=== PATIENT | female | born 1970 | race Caucasian/White ===

== ENCOUNTER → 2016-09-17 | Outpatient (CLI) | payer SELFPAY ==
[2015-01-17 18:17] VITALS: BP 144/72
[~2016-09-17] MED LIST: ARIP10TA13 PO; BACL10TA PO; BUPIVACAINE MPF 0.25% 10 ML VIAL. ONE; BUPR150T8 PO; CLON1TAB23 PO; CYCL10TA2 PO; DULO60CA6 PO; ESCI10TA10 PO; ESCI20TA10 PO; ESCI5TAB8 PO; EXEN5PEN2 SQ; FENT1PAT15 TD; FENT1PAT91 TD; GABA-585 PO; GABA-586 PO; HYDR-2672 PO; INSU100V13 SQ; LIRA0.6P SQ; LIRA0.6P2 SQ; LURA40TA PO; OXCA300T3 PO; OXYM10TA28 PO; PRAZ1CAP2 PO; PREG50CA PO; SITA1TAB7 PO; SUMA100T3 PO; TOPI25CA6 PO; VENL150C PO; VENL75CA PO; ZIPR20CA2 PO; ZIPR40CA2 PO; ZOLP5TAB PO; methylPREDNISolone ACETATE 40 MG/ML VIAL. ONE
--- NOTE | 2016-09-17 12:14 | PAIN ---
DATE OF SERVICE: 09/17/2016 DIAGNOSES: 1. Cervical radiculopathy with cervical spondylosis and post-cervical laminectomy syndrome. 2. Myofascial pain. 3. Lumbar radiculopathy. 4. Left shoulder pain. 5. Migraine headaches. HISTORY OF PRESENT ILLNESS: The patient is a 45-year-old female who returns for followup status post medication management with both Duragesic patch as well as Opana immediate release and Ambien for sleep. The patient also had trigger point injections in the past which did very well with her pain. She had not been seen since March 2016. The patient was still taking Duragesic patches and her Opana. We had her returned today as she has some insurance issues where her insurance was from her 's employment. He changed jobs and that she does not have insurance currently, and she is working on Disability insurance, but it is not completed yet. The patient reports significant pain at the base of the neck and shoulders into the right upper extremity as it was previously as well as in the upper mid back rated as a 10 on a scale of 10 at its worst, 5 at its least, worse with activity, getting dressed, moving her arms up overhead, significant pain in the left shoulder as well and fears that she may need some surgical intervention with this in the future, however, has not had this evaluated by an orthopedic surgeon. Currently, the patient reports the pain is waking her from sleep at night. She is applying heat and stretching, but only minimal decrease with the pain. Medication does help by about 50%-60% without side effects and is becoming more and more difficult to manage as time goes on. The patient delayed her return because of her insurance situation but returns today because the pain is becoming unbearable. PHYSICAL EXAMINATION: VITAL SIGNS: Shows blood pressure 120/79, pulse 79, respirations are 18, and temperature 99.5 degrees Fahrenheit. Height is 5 feet 6 inches, weight is 202 pounds. GENERAL: The patient is awake, alert, oriented, appropriate, very pleasant demeanor. HEENT: Head shows normocephalic, atraumatic. Extraocular movements are intact and symmetrical. Oral cavity, mucous membranes are moist and pink. Dentition is intact. NECK: Shows anterior throat supple without palpable lymphadenopathy noted. Swallow reflex is symmetrical. CHEST: Normal on inspection. Breath sounds clear to auscultation bilaterally. HEART: Shows S1 and S2 clear. ABDOMEN: Soft, nontender, and nondistended. No palpable organomegaly. No rebound or guarding demonstrated. BACK: Shows spine grossly in the midline. Cervical paraspinous muscle shows some significant tenderness and well-healed surgical scar in the midline, once again with palpation, significant tenderness to palpation in the middle and lower cervical paraspinous musculature bilaterally with very firm rope-like musculature, very tender with some radiation into the lateral shoulders, tender also consistent with trigger point areas in the trapezius bilaterally, mostly in the superior, medial, and also in the lateral trapezius on the right, but not the left, some on the rhomboid distribution as well bilaterally, again worse on the right side than the left with some minor hypertrophy with palpation noted on the right side than the left in the upper aspect of the rhomboid and thoracic paraspinous musculature. EXTREMITIES: Upper extremities showed deep tendon reflexes 1+ in the biceps and triceps tendons. Motor exam is approximately 4 on a scale of 5, but symmetrical bilaterally with shaper and presser strength, biceps and triceps flexion. Options were discussed with the patient, and the patient's old chart was reviewed as her current medication regimen and updated. Current review of systems was updated today as well. We will proceed with trigger point injections of the cervical paraspinous and trapezius musculature. Risks were again discussed including but not limited to bleeding, infection, possibility of intravascular injection sequelae, spread of local anesthetic and numbness, pneumothorax, side effects of steroid medication, and poor results regarding pain control. The patient understands and wishes to proceed. The patient will return to clinic in approximately 4 weeks for followup, was counseled on return appointment, activity level, and side effects to be aware of. The patient was also given refill prescriptions for Duragesic patch 25 mcg, Opana IR 10 mg, and Ambien 5 mg with instruction and side effects to be aware of. We discussed about each of these. The patient understands and will follow up as scheduled. DIAGNOSIS: Myofascial pain PROCEDURE: Trigger point injections of bilateral cervical paraspinous musculature and bilateral trapezius musculature under sterile prep and drape using local anesthetic. Medications Injected: A total of 40 mg of Depo-Medrol plus total of 8 mL of 0.25% bupivacaine with negative aspiration at each level. Condition on Discharge: Stable. The patient tolerated the procedure well and had no complications. ABELINO LIMA MD DR: HERMELINDA/rick JOB#: [id number] / [id number]
== END | disposition home or self-care (01) ==
LOC: PNCL 09:24
PROVIDERS: ATTEND Anesthesiology
DX: M79.1 Myalgia (principal); M54.16 Radiculopathy, lumbar region; M47.22 Other spondylosis with radiculopathy, cervical region; M96.1 Postlaminectomy syndrome, not elsewhere classified; E11.9 Type 2 diabetes mellitus without complications; F41.9 Anxiety disorder, unspecified; F32.9 Major depressive disorder, single episode, unspecified; Z72.0 Tobacco use
CPT/HCPCS: 20553; J1030; J3490

== ENCOUNTER → 2016-10-15 | Outpatient (CLI) | payer SELFPAY ==
[2015-01-17 18:17] VITALS: BP 144/72
[~2016-10-15] MED LIST changes: -BUPIVACAINE MPF 0.25% 10 ML VIAL. ONE; -methylPREDNISolone ACETATE 40 MG/ML VIAL. ONE
--- NOTE | 2016-10-15 11:27 | PAIN ---
DATE OF SERVICE: 10/15/2016 PROGRESS NOTE FOR PAIN CLINIC DIAGNOSES: 1. Cervical radiculopathy, cervical spondylosis and post-cervical laminectomy syndrome. 2. Myofascial pain. 3. Left shoulder pain. 4. Lumbar radiculopathy. HISTORY OF PRESENT ILLNESS: The patient is a 45-year-old female, who returns for followup status post trigger point injections on 09/17/2016. The patient did well with these, reports about a 50% improvement overall, still some pain in the base of the neck and right upper extremity and bilateral shoulders and also in the left shoulder, but the patient reports the pain is doing better. It is a 10 on a scale of 10, it is worst, 5 currently worse with activities, aching, shooting and becoming constant. The patient reports that her regimen of pain and Duragesic patches to the pain is not lasting for a while about 2:00-3:00 at the most. She acknowledges for an extended period of time, we discussed changing this. We will make some ulcerations with her medication regimen as she does appear to be developing some physiologic tolerance to the medications. The patient reports no new motor or sensory deficits, no new bowel or bladder incontinence or other complaints or side effects and reports that the medication for about another 50% improvement overall, which is generally more like 75%, but the pain again not lasting as long. PHYSICAL EXAMINATION: VITAL SIGNS: Today, the patient's blood pressure 136/84, pulse 88, respirations are 20, and temperature 99.0 degrees Fahrenheit, height is 5 feet 4 inches, weight is 200 pounds. GENERAL: The patient is awake, alert, oriented, appropriate, very pleasant demeanor. HEENT: Head shows normocephalic, atraumatic. Extraocular movements are intact and symmetrical. Oral cavity shows mucous membranes moist and pink. Dentition is intact. NECK: Shows anterior throat supple without palpable lymphadenopathy noted. Swallow reflex is symmetrical. CHEST: Shows normal on inspection. Breath sounds are clear to auscultation bilaterally. HEART: Shows S1 and S2 clear. ABDOMEN: Soft, nontender, nondistended. No palpable organomegaly. There is no rebound or guarding demonstrated. BACK: Shows spine grossly midline. Normal appearing thoracic kyphosis and lumbar lordotic curvature. Cervical paraspinous muscle shows some moderate tenderness with palpation bilaterally in the inferior aspect of cervical paraspinous muscles in the superior medial lateral aspect of the trapezius musculature slightly more tender on the right side than the left, but tender bilaterally with some areas of trigger point musculature, but without specific radiation. The patient shows good rotational motion of the shoulders as well. EXTREMITIES: Upper extremities with motor exam at 5/5 with welder strength, biceps and triceps flexion. Deep tendon reflexes 2+ in the biceps and triceps tendons are equal. PLAN: Options were discussed with the patient and the patient's old chart was reviewed as her current medication regimen updated. Current review of systems updated today as well. We will refill the patient's Duragesic patches as well as Ambien, but change the Opana 10 mg IR to 10 mg hydrocodone as she has done well with this in the past without side effects and again appears to be developing some physiologic intolerance to the Opana, ____ this and have her return in 1 month or sooner if necessary ____ advanced with the medication. The patient was counseled on activity levels as well as side effects to be aware of all her medications. We will follow up as scheduled. ABELINO LIMA MD DR: HERMELINDA/rick JOB#: [id number] / [id number]
== END | disposition home or self-care (01) ==
LOC: PNCL 09:23
PROVIDERS: ATTEND Anesthesiology
DX: M47.22 Other spondylosis with radiculopathy, cervical region (principal); M79.1 Myalgia; M25.512 Pain in left shoulder; M96.1 Postlaminectomy syndrome, not elsewhere classified
CPT/HCPCS: 99212

== ENCOUNTER → 2016-11-12 | Outpatient (CLI) | payer SELFPAY ==
[2015-01-17 18:17] VITALS: BP 144/72
[~2016-11-12] MED LIST changes: -ARIP10TA13 PO; +ARIP10TA9 PO; -ESCI10TA10 PO; -ESCI20TA10 PO; -ESCI5TAB8 PO; -HYDR-2672 PO; +HYDR-2766 PO; +HYDR4TAB PO; +LEXAPRO10 MG PO; +LEXAPRO20 MG PO; +LEXAPRO5 MG PO
--- NOTE | 2016-11-13 01:37 | PAIN ---
DATE OF SERVICE: 11/12/2016 DIAGNOSES: 1. Cervical radiculopathy with cervical spondylosis and post-cervical laminectomy syndrome. 2. Myofascial pain. 3. Lumbar radiculopathy. 4. Left shoulder pain. 5. Migraine headaches. HISTORY OF PRESENT ILLNESS: The patient is a 46-year-old female who returns for followup status post medication management with Duragesic patches and we had switched her ____ to hydrocodone. The patient returns today reporting hydrocodone is not helping the pain much at all. She cannot tell if she is really taking it with significant pain in the base of the neck, bilateral shoulders and upper extremities as well as her mid back, low back and left leg. The patient reports that her migraine headache has increased as well. ____ pain is 10 on a scale of 10 at its worse and 5 on a scale of 10 currently. Aching, shooting, cramping, radiating pain again in the neck and shoulders and upper extremities and causing increased headaches. The patient reports she is having a migraine today as well. The patient reports it awakens her from sleep at night and is not able to tell much difference with the change in medication that we made. PHYSICAL EXAMINATION: VITAL SIGNS: The patient's blood pressure 124/76, pulse is 98, respirations are 20, temperature 98.7 degrees Fahrenheit, height is 5 feet 4 inches, weight is 203 pounds. GENERAL: The patient is awake, alert, oriented, appropriate, very pleasant demeanor. HEENT: Shows normocephalic, atraumatic. Extraocular movements are intact and symmetrical. Oral cavity, mucous membranes are moist and pink. Dentition is intact. NECK: Shows anterior throat supple without palpable lymphadenopathy noted. Swallow reflex is symmetrical. CHEST: Shows normal on inspection. Breath sounds are clear to auscultation bilaterally. HEART: Shows S1 and S2 clear. ABDOMEN: Soft, nontender, nondistended. No palpable organomegaly, no rebound or guarding demonstrated. BACK: Shows spine grossly in the midline. Slight exaggeration of thoracic kyphosis with mild flattening of lumbar lordotic curvature. Lumbar paraspinous muscle shows some mild tenderness to palpation. Cervical paraspinous musculature; however, is significantly tender and firm in the base of the neck and shoulders in the superior medial trapezius and lateral trapezius bilaterally, essentially equal and appears symmetrical on inspection with significant tenderness without radiation. EXTREMITIES: Upper extremities show deep tendon reflexes 2+ in the biceps and triceps tendons. Motor exam is strong with 5/5 gps navigation installer strength, biceps and triceps flexion. Options were discussed with the patient. The patient's old chart was reviewed as her current medication regimen updated. Current review of systems updated today as well. We will change from hydrocodone to hydromorphone 4 mg to take q.4-6 hours, maintain the patient's Duragesic patch as well as her muscle relaxants and headache medications Imitrex and Topamax. The patient was given instructions as well as side effects to be aware with each of the medications and will follow up in approximately 4 weeks or sooner as necessary. ABELINO LIMA MD DR: HERMELINDA/rick JOB#: [id number] / [id number]
== END | disposition home or self-care (01) ==
LOC: PNCL 09:28
PROVIDERS: ATTEND Anesthesiology
DX: M47.22 Other spondylosis with radiculopathy, cervical region (principal); M79.1 Myalgia; M54.2 Cervicalgia; M96.1 Postlaminectomy syndrome, not elsewhere classified; M25.512 Pain in left shoulder; G43.009 Migraine without aura, not intractable, without status migrainosus
CPT/HCPCS: 99212

== ENCOUNTER → 2016-12-13 | Outpatient (CLI) | payer SELFPAY ==
[2015-01-17 18:17] VITALS: BP 144/72
[~2016-12-13] MED LIST changes: +DIVA500T4 PO
== END | disposition home or self-care (01) ==
LOC: PNCL 13:17
PROVIDERS: ATTEND Anesthesiology
DX: M47.892 Other spondylosis, cervical region (principal); M25.512 Pain in left shoulder
CPT/HCPCS: 99212

== ENCOUNTER → 2017-02-07 | Outpatient (CLI) | payer SELFPAY ==
[2015-01-17 18:17] VITALS: BP 144/72
[~2017-02-07] MED LIST changes: +BUPIVACAINE MPF 0.25% 10 ML VIAL. ONE; +methylPREDNISolone ACETATE 40 MG/ML VIAL. ONE
--- NOTE | 2017-02-07 23:30 | PAIN ---
DATE OF SERVICE: 02/07/2017 PROGRESS NOTE DIAGNOSES: 1. Cervical radiculopathy, cervical spondylosis and post-cervical laminectomy syndrome. 2. Myofascial pain. 3. Lumbar radiculopathy. 4. Left shoulder pain. HISTORY OF PRESENT ILLNESS: The patient is a 46-year-old female who returns for followup status post trigger point injections and epidural injections in the past. The patient reports that she is having significant increase in pain over the past month in the base of the neck and right shoulder, right upper extremity with numbness and tingling in the hands, where she cannot lift her arm up past about 10 degrees from her side on her right shoulder. The patient reports aching and shooting, tingling, cramping, stabbing, radiating, becoming constant and severe, rated as a 10 on a scale of 10 at all times. The patient reports she cannot sleep because of the pain. She is only sleeping very sporadically, may be an hour at a time at the most, also causing migraine headaches to be increased and causing some nausea as well. The patient reports her pain medication is not taking care of it. She is on hydromorphone as well as Duragesic patches. Reports the pain is not decreased with the medication currently. The patient with some significant spasticity in the right shoulder, and neck as well. The patient reports no new motor or sensory deficits, no loss of function, but she is afraid to move her right arm because of the pain in the base of the neck and shoulder. PHYSICAL EXAMINATION: VITAL SIGNS: Today, the patient's blood pressure is 152/86, pulse 105, respirations 20, temperature 98.4 degrees Fahrenheit. Height is 5 feet 4 inches and weight 202 pounds. GENERAL: The patient is awake, alert, oriented, appropriate, very pleasant demeanor. HEENT: Shows normocephalic and atraumatic. Extraocular movements are intact and symmetrical. Oral cavity shows mucous membranes moist and pink. Dentition is intact. NECK: Shows anterior throat supple. The patient has posterior cervical musculature shows significant tenderness at the inferior aspect of the cervical paraspinous musculature on the right compared to the left as well as in the superomedial and lateral trapezius and suprascapular region as well as the upper part of the rhomboid in the right side, very firm, rope-like musculature consistent with trigger point areas of muscle in the right trapezius and rhomboid as well as suprascapular distribution, very firm, very tender with severe pain on palpation. Left side shows supple musculature with only very mild tenderness. CHEST: Shows normal on inspection. Breath sounds are clear to auscultation bilaterally. HEART: Shows S1 and S2 clear. EXTREMITIES: Upper extremities show deep tendon reflexes at 1+ in the biceps and triceps tendons, significant tenderness with even passive motion of this shoulder to abduction, greater than about 20 degrees on the right side with pain in the base of the neck and shoulder. PLAN: Options were discussed with the patient. The patient's old chart was reviewed as her current medication regimen and updated. Current review of systems updated today as well. We will proceed with trigger point injections of the right trapezius as well as suprascapular region on the right side with risks discussed including, but not limited to bleeding, infection, possibility of intravascular injection, sequelae, pneumothorax, side effects of steroid medications, spread of local anesthetic and numbness and poor results regarding pain control. The patient understands and wished to proceed. The patient will return to clinic in approximately 2 weeks for followup. She was counseled as to return appointment, activity level and side effects to be aware of. The patient was given a refill prescription for hydromorphone with instructions, side effects to be aware as well as I have increased patient's Duragesic patch to 50 mcg as opposed to 25, again with instructions, side effects to be aware of and cautioned of side effects with the increased medication dosage. The patient understands and agrees and will follow up as scheduled. DIAGNOSES: Myofascial pain, right trapezius and suprascapular musculature. PROCEDURE: Trigger point injections times 4 of the right trapezius and suprascapular musculature using sterile prep and drape under local anesthetic. Total medications injected is 40 mg of Depo-Medrol plus 4 mL of 0.25% bupivacaine after negative aspiration at each injection. CONDITION ON DISCHARGE: Stable. The patient tolerated the procedure well and had no complications. ABELINO LIMA MD DR: HERMELINDA/rick JOB#: [id number] / [id number]
== END | disposition home or self-care (01) ==
LOC: PNCL 12:49
PROVIDERS: ATTEND Anesthesiology
DX: M79.1 Myalgia (principal); M47.22 Other spondylosis with radiculopathy, cervical region; M96.1 Postlaminectomy syndrome, not elsewhere classified; F41.9 Anxiety disorder, unspecified; F32.9 Major depressive disorder, single episode, unspecified; F17.200 Nicotine dependence, unspecified, uncomplicated; Z98.51 Tubal ligation status; Z87.39 Personal history of other diseases of the musculoskeletal system and connective tissue; Z72.0 Tobacco use; Z88.6 Allergy status to analgesic agent; Z86.39 Personal history of other endocrine, nutritional and metabolic disease
CPT/HCPCS: 20552; J1030; J3490

== ENCOUNTER → 2017-09-05 | Outpatient (CLI) | payer MEDICARE | LOC: PNCL 10:34 | DX: Z01.818 Encounter for other preprocedural examination (principal); M50.10 Cervical disc disorder with radiculopathy, unspecified cervical region; M79.1 Myalgia; M54.16 Radiculopathy, lumbar region; M96.1 Postlaminectomy syndrome, not elsewhere classified; M25.511 Pain in right shoulder; M25.512 Pain in left shoulder; Z88.6 Allergy status to analgesic agent | CPT/HCPCS: G0463 ==

== ENCOUNTER → 2017-11-13 | Outpatient (CLI) | payer MEDICARE | END | disposition home or self-care (01) | LOC: PNCL 11:26 | DX: M54.12 Radiculopathy, cervical region (principal); M47.892 Other spondylosis, cervical region; M54.16 Radiculopathy, lumbar region; M25.512 Pain in left shoulder; M25.511 Pain in right shoulder; M79.1 Myalgia; E11.9 Type 2 diabetes mellitus without complications; E78.00 Pure hypercholesterolemia, unspecified | CPT/HCPCS: G0463 ==

== ENCOUNTER → 2018-01-08 | Outpatient (CLI) | payer MEDICARE ==
[~2018-01-08] MED LIST changes: -ARIP10TA9 PO; -BACL10TA PO; +BUPIVACAINE MPF 0.25% 10 ML VIAL.; -BUPIVACAINE MPF 0.25% 10 ML VIAL. ONE; -BUPR150T8 PO; -CLON1TAB23 PO; -CYCL10TA2 PO; -DIVA500T4 PO; -DULO60CA6 PO; -EXEN5PEN2 SQ; -FENT1PAT15 TD; -FENT1PAT91 TD; -GABA-585 PO; -GABA-586 PO; -HYDR-2766 PO; -HYDR4TAB PO; -INSU100V13 SQ; -LEXAPRO10 MG PO; -LEXAPRO20 MG PO; -LEXAPRO5 MG PO; -LIRA0.6P SQ; -LIRA0.6P2 SQ; -LURA40TA PO; -OXCA300T3 PO; -OXYM10TA28 PO; -PRAZ1CAP2 PO; -PREG50CA PO; -SITA1TAB7 PO; -SUMA100T3 PO; -TOPI25CA6 PO; -VENL150C PO; -VENL75CA PO; -ZIPR20CA2 PO; -ZIPR40CA2 PO; -ZOLP5TAB PO; +methylPREDNISolone ACETATE 40 MG/ML VIAL.; -methylPREDNISolone ACETATE 40 MG/ML VIAL. ONE
== END | disposition home or self-care (01) ==
LOC: PNCL 11:57
DX: M79.1 Myalgia (principal); M25.511 Pain in right shoulder; M47.22 Other spondylosis with radiculopathy, cervical region; G43.909 Migraine, unspecified, not intractable, without status migrainosus; Z98.51 Tubal ligation status; E11.9 Type 2 diabetes mellitus without complications; F41.9 Anxiety disorder, unspecified; F32.9 Major depressive disorder, single episode, unspecified; E78.00 Pure hypercholesterolemia, unspecified; F17.200 Nicotine dependence, unspecified, uncomplicated; Z79.899 Other long term (current) drug therapy; Z88.5 Allergy status to narcotic agent; Z79.84 Long term (current) use of oral hypoglycemic drugs; Z98.890 Other specified postprocedural states
CPT/HCPCS: 20553; J1030; J3490

== ENCOUNTER → 2018-03-20 | Outpatient (CLI) | payer MEDICARE ==
[2015-01-17 18:17] VITALS: BP 144/72
[~2018-03-20] MED LIST changes: +ARIP10TA9 PO; +BACL10TA PO; -BUPIVACAINE MPF 0.25% 10 ML VIAL.; +BUPR150T8 PO; +CLON1TAB23 PO; +CYCL10TA2 PO; +DIVA500T4 PO; +DULO60CA6 PO; +EXEN5PEN2 SQ; +FENT1PAT15 TD; +FENT1PAT91 TD; +FENT1PAT91 TP; +GABA-585 PO; +GABA-586 PO; +HYDR-2766 PO; +HYDR4TAB PO; +INSU100V13 SQ; +LEXAPRO10 MG PO; +LEXAPRO20 MG PO; +LEXAPRO5 MG PO; +LIRA0.6P SQ; +LIRA0.6P2 SQ; +LURA40TA PO; +MELA3TAB2 PO; +OXCA300T3 PO; +OXYM10TA28 PO; +PRAZ1CAP2 PO; +PREG50CA PO; +SITA1TAB7 PO; +SUMA100T3 PO; +TOPI25CA6 PO; +VENL150C PO; +VENL75CA PO; +VENL75TA PO; +ZIPR20CA2 PO; +ZIPR40CA2 PO; +ZOLP5TAB PO; +lamictal; -methylPREDNISolone ACETATE 40 MG/ML VIAL.
--- NOTE | 2018-03-20 20:48 | PAIN ---
DATE OF SERVICE: 03/20/2018 PROGRESS NOTE FOR PAIN CLINIC DIAGNOSES: 1. Cervical radiculopathy with cervical spondylosis and cervical post-laminectomy syndrome. 2. Lumbar radiculopathy. 3. Myofascial pain. HISTORY OF PRESENT ILLNESS: The patient is a 47-year-old female who returns for followup status post medication management with both hydromorphone and Duragesic patches and also trigger point injections in the right shoulder and trapezius on her last visit. The patient reports that shoulder doing much better about a 75% improvement in the right shoulder and arm. The patient reports she fell about a week ago and hit the back of her head and it caused some significant headaches and also had some increased neck stiffness since that time as well as some low back pain but is doing slightly better now. The patient reports her pain is a 10 on a scale of 10 at its worst, 6 on average, 4 at its least and is a 4 today. The patient reports it is aching, sharp, shooting, tingling, burning, radiating in the neck and the right shoulder and upper extremity as well as in the low back with some tightness in the musculature as well. The patient reports it awakens her from sleep off and on but not every night. Does not have any new motor or sensory deficits and no new bowel or bladder incontinence or other complaints. PHYSICAL EXAMINATION: VITAL SIGNS: The patient's blood pressure 131/83, pulse 96, respirations are 18, temperature 98.8 degrees Fahrenheit, height is 5 feet 4 inches and weighs 195 pounds. GENERAL: The patient is awake, alert, oriented, appropriate and very pleasant demeanor. HEENT: Head shows normocephalic and atraumatic. Extraocular movements are intact and symmetrical. Oral cavity: Mucous membranes moist and pink. Dentition is intact. NECK: Shows anterior throat supple without palpable lymphadenopathy noted. Swallow reflex is symmetrical. CHEST: Shows normal with inspection. Breath sounds clear to auscultation bilaterally. HEART: Shows S1 and S2 clear. No murmurs auscultated. ABDOMEN: Obese, soft, nontender and nondistended. No palpable organomegaly is noted. BACK: Shows spine grossly in the midline. Cervical paraspinous muscle shows symmetrical on inspection, with palpation shows some moderate tenderness in the right middle and inferior aspect of the cervical paraspinous muscles as well as the right trapezius, was very firm and tender with palpation but only diffusely. The patient shows some tenderness with rotational motion both laterally as well as extension and flexion of the cervical spine with some diffuse tenderness, generalized in the inferior aspect of the cervical spine, more on the right than the left. The patient's low back shows midline. Lumbar paraspinous musculature shows some minor flattening of the lumbar lordotic curvature. Paraspinous musculature shows symmetrical on inspection but with palpation shows some moderate tenderness throughout the upper, middle, lower distribution of the paraspinous muscles, again diffusely without radiation, without trigger points. The patient has good rotational motion of the lumbar spine, both laterally as well as extension and flexion without significant limitation or significant pain. EXTREMITIES: Upper extremities show deep tendon reflexes at 2+ in the biceps and triceps tendons. Motor exam is strong with ecology professor strength rated at 4/5 on the right, 5/5 on the left. Peripheral pulses are 2+ radial distribution. No peripheral edema is noted. Lower extremities show deep tendon reflexes 1+ in the patellar and tendo-calcaneus tendons. Motor exam is 5/5 with dorsiflexion, extension and equal and symmetrical. Peripheral pulses are 1+, posterior tibia. No peripheral edema is noted in the lower extremities as well. Options were discussed with the patient. The patient's old chart was reviewed as well as her current medication regimen updated. Current review of system updated today as well. We will proceed with refilling of the patient's Duragesic patch as well as hydromorphone. She has had appropriate [facility] reporting as well as appropriate urinalysis to date. We will refill this for 2-month period. The patient will return to the clinic in approximately 2 months or sooner if necessary. The patient encouraged to increase heat and massage therapies to the neck, right shoulder as well as the low back and stretching and strengthening exercises. We went over with her again today with these as well as to do these on her own. She would like to try do this on her own accord first without any formal therapy at this time. We will have her follow up in approximately 2 months or sooner as scheduled. ABELINO LIMA MD DR: HERMELINDA/rick JOB#: [id number] / [id number]
== END | disposition home or self-care (01) ==
LOC: PNCL 07:28
PROVIDERS: ATTEND Anesthesiology
DX: M54.12 Radiculopathy, cervical region (principal); M54.16 Radiculopathy, lumbar region; M47.892 Other spondylosis, cervical region; M96.1 Postlaminectomy syndrome, not elsewhere classified; M79.18 Myalgia, other site
CPT/HCPCS: G0463

== ENCOUNTER → 2018-08-12 | Outpatient (CLI) | payer MEDICARE ==
[2015-01-17 18:17] VITALS: BP 144/72
[~2018-08-12] MED LIST changes: -GABA-586 PO; +GABA300C18 PO; -HYDR-2766 PO; +HYDR-2769 PO
--- NOTE | 2018-08-13 03:48 | PAIN ---
DATE OF SERVICE: 08/12/2018 PROGRESS NOTE FOR PAIN CLINIC DIAGNOSES: 1. Cervical radiculopathy with cervical spondylosis and post-cervical laminectomy syndrome. 2. Lumbar radiculopathy. 3. Myofascial pain. 4. Bilateral shoulder joint pain. 5. Migraine headaches. HISTORY OF PRESENT ILLNESS: The patient is a 47-year-old female who returns for followup status post medication management with both, Duragesic patches and hydromorphone as well as gabapentin. The patient reports she is doing fairly well with this with good decrease in the pain by about 70% or so with the pain in her neck and shoulders. The patient reports that it flared up a bit over the past month that she was having difficulty making her followup appointment secondary to weather and was having reaction to her medication, which increased the pain to some extent. The patient reports it is across the shoulders, more in the right upper extremity radiating to the right arm and hand with numbness in the fingers and thumb on the right side and also pain in the low back, right leg and right hip and knee, bilateral shoulders as well. The patient reports the pain is aching, shooting, tingling, radiating, becoming more severe, more constant with decreased pain medication, but without side effects with the medication. The patient reports the pain is a 9 on a scale of 10 at its worst, 6 on average, 4 at its least and is a 6 today. The patient reports it is better with lying down or resting. Does not generally awaken her from sleep at night. No new motor or sensory deficits and no new bowel or bladder incontinence. She has been wearing a carpal tunnel brace on her right hand, which does help decrease the pain in her hand at night. The patient reports she just had a flu, respiratory infection and has been put on some prednisone and has 2 days left on that and this has helped the pain a slight amount as well. The patient reports no new changes. No new bowel or bladder incontinence or other complaints. PHYSICAL EXAMINATION: VITAL SIGNS: The patient's blood pressure 115/70, pulse 116, respirations 18 and temperature 98.8 degrees Fahrenheit. Height is 5 feet 4 inches and weight is 181 pounds. GENERAL: The patient is awake, alert, oriented, appropriate and very pleasant demeanor. HEENT: Head shows normocephalic and atraumatic. Extraocular movements are intact and symmetrical. Oral cavity: Mucous membranes moist and pink. Dentition intact. NECK: Shows anterior throat supple without palpable lymphadenopathy noted. Swallow reflex symmetrical. CHEST: Shows normal on inspection. Breath sounds clear to auscultation bilaterally. HEART: Shows S1 and S2 clear. No murmurs auscultated. ABDOMEN: Soft, nontender and nondistended. Obese. No palpable organomegaly is noted. No rebound or guarding demonstrated. BACK: Shows spine grossly in the midline. Normal appearing thoracic kyphosis and lumbar lordotic curvature. Lumbar paraspinous muscle shows symmetrical on inspection as does the cervical paraspinal musculature with palpation. Cervical paraspinous muscle shows symmetrical but with moderate palpation in the low inferior aspect of the cervical paraspinous muscles and the superior medial trapezius bilaterally, slightly worse on the right than the left. The patient has good rotational motion of the cervical spine, both laterally as well as extension and flexion without significant limitation or increase in pain. The patient's low back shows good rotational motion as well greater than 10 degrees right and left as well as extension greater than 10 degrees, forward flexion 45 degrees without pain reported. EXTREMITIES: Upper extremities show deep tendon reflexes at 2+ in the biceps and triceps tendons. Motor exam is approximately 4 on scale 5 on the right and 5/5 on the left. Peripheral pulses are 2+ radial distribution. No peripheral edema is noted. Options were discussed with the patient. The patient's old chart was reviewed as well as her current medication regimen updated. Current review of systems updated today as well. We will proceed with refill of the patient's medication both, Duragesic patch as well as hydromorphone and gabapentin for 2-month period. The patient was given prescription as well as instructions, side effects to be aware of each of the prescriptions. The patient has had appropriate K-TRACS reporting as well as appropriate urinalysis to date and we will refill this for 2 months. The patient also has urinalysis today as routine screening and renew the patient's narcotic contract as well. The patient was given a copy of this. The patient will return to the clinic in approximately 2 months or sooner if necessary. ABELINO LIMA MD DR: HERMELINDA/rick JOB#: [id number] / [id number]
== END | disposition home or self-care (01) ==
LOC: PNCL 09:37
PROVIDERS: ATTEND Anesthesiology
DX: M47.22 Other spondylosis with radiculopathy, cervical region (principal); M96.1 Postlaminectomy syndrome, not elsewhere classified; G43.909 Migraine, unspecified, not intractable, without status migrainosus; M25.512 Pain in left shoulder; M25.511 Pain in right shoulder; M79.18 Myalgia, other site
CPT/HCPCS: G0463

== ENCOUNTER → 2018-10-14 | Outpatient (CLI) | payer MEDICARE ==
[2015-01-17 18:17] VITALS: BP 144/72
--- NOTE | 2018-10-15 00:43 | PAIN ---
DATE OF SERVICE: 10/14/2018 PROGRESS NOTE FOR PAIN CLINIC: DIAGNOSES: 1. Cervical radiculopathy, cervical spondylosis and post-cervical laminectomy syndrome. 2. Lumbar radiculopathy with lumbar degenerative disk disease. 3. Myofascial pain. 4. Bilateral shoulder joint pain. HISTORY OF PRESENT ILLNESS: The patient is a 47-year-old female who returns for followup status post medication management with both Duragesic patches as well as hydromorphone. The patient is also taking gabapentin 3 times a day with a higher dose at night. The patient reports pain is returning and increasing in her low back and bilateral lower extremities equally, somewhat more on the right than the left, in the back, but equally on the sides and radiating to the posterior gluteus, posterior thigh, lateral thigh, anterior thigh, medial thighs and medial lower leg. The patient reports it is tingling, burning, aching across the back, shooting into the lower extremities, also has pain in the neck and shoulders and the right upper extremity with some pain in the right wrist and hand. The patient reports it is radiating, becoming more severe, tingling, burning, keeping her awake from sleep at night. She has not slept much in the last few days. The patient reports, has restless legs as well and the pain is beginning to get worse. The patient reports usually this Duragesic patch and hydromorphone combination will decrease her pain by about 75%, but it is now about 50%. PHYSICAL EXAMINATION: VITAL SIGNS: The patient's blood pressure 138/82, pulse 93, respirations 18, temperature 98.9 degrees Fahrenheit, height is 5 feet 4 inches, weight is 189 pounds. GENERAL: The patient is awake, alert, oriented, appropriate, very pleasant demeanor. HEENT: Head shows normocephalic and atraumatic. Extraocular movements intact and symmetrical. Oral cavity: Mucous membranes moist and pink. Dentition is intact. NECK: Shows anterior throat supple without palpable lymphadenopathy noted. Swallow reflex symmetrical. CHEST: Shows normal on inspection. Breath sounds clear to auscultation bilaterally. HEART: Shows S1, S2 clear. No murmurs auscultated. ABDOMEN: Soft, nontender, nondistended. No palpable organomegaly is noted. No rebound or guarding demonstrated. BACK: Shows spine grossly in the midline. Cervical paraspinous muscle shows symmetrical on inspection, with palpation shows some moderate tenderness in the inferior aspect of the cervical paraspinous muscles as well as superior medial trapezius bilaterally, but only diffusely without radiation. The patient shows good rotational motion of the cervical spine, both laterally as well as extension and flexion without significant difficulty. EXTREMITIES: The patient's lower back shows paraspinous musculature of the lumbar spine, diffusely tender bilaterally throughout the upper, middle, lower distribution of the paraspinous muscles without specific radiation, but with good rotation of the lumbar spine, both laterally greater than 10 degrees right and left as well as extension greater than 10 degrees, forward flexion 45 degrees without significant pain reported. EXTREMITIES: The patient's lower extremities show deep tendon reflexes at 1+ in the patellar and tendo-calcaneus tendons. Motor exam is approximately 4 on a scale of 5, but equal and symmetrical bilaterally. Upper extremities show deep tendon reflexes 2+ in the biceps and triceps tendons. Motor exam is 4/5 with right brick pointer strength and 5/5 on the left. Peripheral pulses are 2+ radial distribution. No peripheral edema bilaterally. Options were discussed with the patient. The patient's old chart was reviewed as her current medication regimen updated. Current review of systems updated today as well. We will refill the patient's Duragesic patch as well as hydromorphone, also add a Medrol Dosepak and refill gabapentin. The patient was given instruction as well as side effects to be aware of each of the medications. The patient has had appropriate K-TRACS reporting as well as appropriate urinalysis to date and we refilled the controlled substance for 2 months. The patient will return to clinic in 2 months or prior to that if necessary. ABELINO LIMA MD DR: HERMELINDA/rick JOB#: [id number] / [id number]
== END | disposition home or self-care (01) ==
LOC: PNCL 10:36
PROVIDERS: ATTEND Anesthesiology
DX: M47.22 Other spondylosis with radiculopathy, cervical region (principal); M51.16 Intervertebral disc disorders with radiculopathy, lumbar region; M79.18 Myalgia, other site; M96.1 Postlaminectomy syndrome, not elsewhere classified
CPT/HCPCS: G0463

== ENCOUNTER → 2019-01-12 | Outpatient (CLI) | payer MEDICARE ==
[2015-01-17 18:17] VITALS: BP 144/72
[~2019-01-12] MED LIST changes: +IOHEXOL 180 MG/ML 10 ML VIAL. ONE; +methylPREDNISolone ACETATE 40 MG/ML VIAL. ONE; +methylPREDNISolone ACETATE 80 MG/ML VIAL. ONE
--- NOTE | 2019-01-12 15:57 | PAIN ---
DATE OF SERVICE: 01/12/2019 PROGRESS NOTE FOR PAIN CLINIC DIAGNOSES: 1. Cervical radiculopathy with cervical spondylosis and post cervical laminectomy syndrome. 2. Lumbar radiculopathy with lumbar degenerative disk disease. 3. Myofascial pain. 4. Shoulder joint pain, right greater than left. 5. Migraine headaches. HISTORY OF PRESENT ILLNESS: The patient is a 48-year-old female who returns for followup status post medication management with both Duragesic patches and hydromorphone, also Topamax and Imitrex for headaches. The patient is taking cyclobenzaprine as well as gabapentin. The patient reports she does fairly well with all the medications. From the regional standpoint, she fell in her garage about a week ago; however, injured her right shoulder. She fell on her right side. She has had significant pain in the low back radiating to the right posterior gluteus, posterior thigh and posterior calf since that time in a radicular pattern. The patient reports it is a 10 on a scale of 10 at its worst, 9 on average, 8 at its least and is a 9 today. The patient reports it is aching, sharp, shooting in the low back with her main complaint into the leg, posterior gluteus, thigh and calf. The patient reports it is burning, stabbing, radiating, becoming more constant, more severe and unbearable with weightbearing, standing, walking, changing positions. It has been awakening her from sleep at night every 2 to 3 hours. The patient reports no loss of motor function, but significant pain with ambulation, standing and using her right leg, also with walking or changing positions. No bowel or bladder incontinence, no loss of motor function. PHYSICAL EXAMINATION: VITAL SIGNS: The patient's blood pressure 133/85, pulse 109, respirations are 16, temperature is 98.3 degrees Fahrenheit, weight is 183 pounds. GENERAL: The patient is awake, alert, oriented, appropriate, very pleasant demeanor. HEENT: Shows normocephalic, atraumatic. Extraocular movements are intact and symmetrical. Oral cavity: Mucous membranes moist and pink. Dentition is intact. NECK: Shows anterior throat supple without palpable lymphadenopathy noted. Swallow reflex symmetrical. CHEST: Shows normal on inspection. Breath sounds clear to auscultation bilaterally. HEART: Shows S1, S2 clear. No murmurs auscultated. ABDOMEN: Soft, nontender, nondistended. No palpable organomegaly is noted. No rebound or guarding demonstrated. BACK: Shows spine grossly in the midline. Slight exaggeration of thoracic kyphosis, some minor flattening of cervical lordotic curvature and flattening of lumbar lordotic curvature. Lumbar distribution has some tattooing noted. Lumbar paraspinous muscle shows symmetrical on inspection, on palpation some moderate tenderness throughout the upper, middle and lower distribution of paraspinous muscles bilaterally, but only diffusely without specific radiation. No tenderness over the spinous processes, sacrum or sacroiliac regions. The patient has good rotational motion of lumbar spine, both laterally greater than 10 degrees right and left as well as extension greater than 10 degrees, forward flexion 45 degrees without significant increase in pain, but mild increase with extension only. Lower extremities show deep tendon reflexes at 1+ in the patellar and tendo-calcaneus tendons. Motor exam is strong with 4 on a scale of 5, but symmetrical dorsiflexion, extension, quadriceps and hamstring flexion and are equal. Peripheral pulses are 1+ posterior tibial. No peripheral edema is noted. Options were discussed with the patient. The patient's old chart was reviewed as her current medication regimen updated. Current review of systems updated today as well. We will proceed with lumbar epidural steroid injection, today is the first in this series. Risks were again discussed including, but not limited to bleeding, infection, possibility of epidural hematoma, subsequent neurological compromise, dural puncture, headaches, spinal cord and/or nerve damage, side effects of steroid medication and poor results regarding pain control. The patient understands and wished to proceed. The patient will return to clinic in approximately 2 weeks for followup. She was counseled to return appointment, activity level and side effects to be aware of. The patient also given refills of her hydromorphone as well as Duragesic patches, Imitrex with side effects discussed each of the medications. The patient has had appropriate K-TRACS reporting as well as appropriate urinalysis to date and we will renew narcotic contract today and also give the patient 2-month prescription with instructions and side effects to be aware of as noted. The patient will follow up in approximately 2 months or sooner as necessary. DIAGNOSIS: Lumbar radiculopathy with lumbar degenerative disk disease. PROCEDURE: Lumbar epidural steroid injection, translaminar approach, L5-S1 level using C-arm fluoroscopic guidance under sterile prep and drape using local anesthetic. MEDICATION INJECTED: A total of 120 mg Depo-Medrol plus 10 mL of preservative-free normal saline and 2 mL of Isovue for contrast. CONDITION AT DISCHARGE: Stable. The patient tolerated the procedure well, had no complications. ABELINO LIMA MD DR: HERMELINDA/rick JOB#: [id number] / [id number]
== END ==
LOC: PNCL 09:19
PROVIDERS: ATTEND Anesthesiology
DX: M51.16 Intervertebral disc disorders with radiculopathy, lumbar region (principal); G43.909 Migraine, unspecified, not intractable, without status migrainosus; M50.10 Cervical disc disorder with radiculopathy, unspecified cervical region; M96.1 Postlaminectomy syndrome, not elsewhere classified
CPT/HCPCS: 62323; J1030; J1040; Q9965

== ENCOUNTER → 2019-03-24 | Outpatient (CLI) | payer MEDICARE ==
[2015-01-17 18:17] VITALS: BP 144/72
[~2019-03-24] MED LIST changes: -IOHEXOL 180 MG/ML 10 ML VIAL. ONE; -MELA3TAB2 PO; +MELA3TAB56 PO; -methylPREDNISolone ACETATE 40 MG/ML VIAL. ONE; -methylPREDNISolone ACETATE 80 MG/ML VIAL. ONE
--- NOTE | 2019-03-24 14:54 | PAIN ---
DATE OF SERVICE: 03/24/2019 PROGRESS NOTE FOR PAIN CLINIC DIAGNOSES: 1. Cervical radiculopathy with cervical spondylosis and post-cervical laminectomy syndrome. 2. Lumbar radiculopathy with lumbar degenerative disk disease. 3. Myofascial pain. 4. Shoulder joint pain, right greater than left. 5. Migraine headaches. HISTORY OF PRESENT ILLNESS: The patient is a 48-year-old female who returns for followup status post medication management with both Duragesic patches and hydromorphone, also taking Imitrex for headaches. The patient reports all these are doing very well for her about 80% improvement with the medications without significant side effects. The patient also had lumbar epidural steroid injection on her last visit, reports about 75% improvement with the back and right leg. The patient reports no new motor or sensory deficits, no new bowel or bladder incontinence, but significant pain in her right shoulder. Her main complaint today, she has a very large mastiff dog at home, which she has been helping lift the dog, as it has been injured and that has gotten into her right shoulder and arm, but exacerbated significantly. The patient reports the pain is a 9 on a scale of 10 at its worst, 7 on average, 6 at its least and is a 7 today. The patient reports sharp, shooting, tingling, cramping, radiating, becoming constant and severe with use in the right arm and shoulder. No motor loss, but significant fatigability of the right arm. The patient reports otherwise no new changes. PHYSICAL EXAMINATION: VITAL SIGNS: The patient's blood pressure is 99/39, recheck was 118/77, pulse 91, respirations 16, temperature 99.5 degrees Fahrenheit, height is 5 feet 6 inches, and weight is 187 pounds. GENERAL: The patient is awake, alert, oriented, appropriate, very pleasant demeanor. HEENT: Shows normocephalic, atraumatic. Extraocular movements are intact and symmetrical. Oral cavity: Mucous membranes moist and pink. Dentition is intact. NECK: Shows anterior throat supple without palpable lymphadenopathy noted. Swallow reflex symmetrical. CHEST: Shows normal on inspection. Breath sounds clear to auscultation bilaterally. HEART: Shows S1, S2 clear. No murmurs auscultated. ABDOMEN: Soft, nontender, nondistended. No palpable organomegaly is noted. No rebound or guarding demonstrated. BACK: Shows spine grossly in the midline. Neck shows significant tenderness with palpation in the inferior aspect of the cervical paraspinous musculature on the right and into the superior medial and lateral trapezius, very firm, and very tender as well, left side is more supple. The patient shows limited rotational motion with painful abduction of the shoulder at 90 degrees, but pivot end polisher strength is intact at 5/5, pivot end polisher strength is just true on the left side as well. Peripheral pulses are 2+ radial. No peripheral edema is noted. PLAN: Options were discussed with the patient. The patient's old chart was reviewed as her current medication regimen updated, current review of systems updated today as well. We will refill the patient's Duragesic patch as well as hydromorphone and Imitrex. The patient has had appropriate K-TRACS reporting as well as appropriate urinalysis to date. We will make this a 2-month prescription refill. The patient was counseled as to the medications as well as side effects to be aware of each of the medications, also to add Medrol Dosepak with instructions, side effects to be aware, discussed to see if this may help with the right shoulder pain and also encouraged stretching, heat application and massage therapy for the right shoulder as this has worked well for her in the past. The patient will follow up in approximately 2 months or sooner as necessary. ABELINO LIMA MD DR: HERMELINDA/rick JOB#: [id number] / [id number]
== END | disposition home or self-care (01) ==
LOC: PNCL 10:07
PROVIDERS: ATTEND Anesthesiology
DX: M51.16 Intervertebral disc disorders with radiculopathy, lumbar region (principal); M47.22 Other spondylosis with radiculopathy, cervical region; M96.1 Postlaminectomy syndrome, not elsewhere classified; M25.511 Pain in right shoulder; M25.512 Pain in left shoulder; M79.10 Myalgia, unspecified site; G43.909 Migraine, unspecified, not intractable, without status migrainosus
CPT/HCPCS: G0463

== ENCOUNTER → 2019-05-19 | Outpatient (CLI) | payer MEDICARE ==
[2015-01-17 18:17] VITALS: BP 144/72
[~2019-05-19] MED LIST changes: +BUPIVACAINE MPF 0.25% 10 ML VIAL. ONE; +methylPREDNISolone ACETATE 80 MG/ML VIAL. ONE
--- NOTE | 2019-05-19 21:46 | PAIN ---
DATE OF SERVICE: 05/19/2019 PROGRESS NOTE FOR PAIN CLINIC DIAGNOSES: 1. Cervical radiculopathy with cervical spondylosis and post-cervical laminectomy syndrome. 2. Myofascial pain. HISTORY OF PRESENT ILLNESS: The patient is a 48-year-old female who returns for followup status post previous cervical epidural steroid injection and returns today with medication management as well with hydromorphone as well as Duragesic patches. The patient reports significant increase in pain in the right upper extremity, difficulty moving the right upper extremity for about the past 3 weeks where the pain is not being controlled. She has been throwing up significantly because of the pain in her right arm and is unable to keep her pain medicines down. The patient is still wearing Duragesic patch, which is helping, but only by about 50%, not to the extent that she needs. The patient reports the pain is sharp, shooting, tingling, burning, stabbing, radiating, becoming constant, severe. It is sometimes unbearable in the right arm and upper extremity as well as the base of the neck. The patient reports it is a 10 on a scale of 10 at its worst, 9 on average and 8 at its least and is an 8 today. The patient reports no complete deficits, but significant disability to use the right upper extremity and weakness accompanied with pain in the right arm. The patient reports it is keeping her from sleeping almost 24 hours a day. She has been up for 24 hours today she reports on her visit this morning as well. PHYSICAL EXAMINATION: VITAL SIGNS: The patient's blood pressure 161/93, pulse 96, respirations 18, temperature is 98.2 degrees Fahrenheit, height is 5 feet 6 inches, weighs 187 pounds. GENERAL: The patient is awake, alert, oriented, appropriate, very pleasant demeanor. HEENT: Shows normocephalic, atraumatic. Extraocular movements are intact and symmetrical. Oral cavity shows mucous membranes moist and pink. Dentition is intact. NECK: Shows anterior throat supple without palpable lymphadenopathy noted. Swallow reflex symmetrical. CHEST: Shows normal on inspection. Breath sounds are clear bilaterally. HEART: Shows S1, S2 clear. No murmurs auscultated. ABDOMEN: Soft, nontender, nondistended. BACK: Shows spine grossly in the midline. Cervical paraspinous muscle shows symmetrical on inspection, with palpation shows some significant tenderness in the inferior aspect of the cervical paraspinous musculature and the trapezius musculature on the right side with very firm rope-like musculature in the trapezius itself only on the right. Very firm, tender with some minor radiation into the right superior deltoid with palpation. The patient has good rotational motion of the neck, but very guarded, especially with extension and right lateral rotation, left lateral rotation was performed without difficulty. EXTREMITIES: Upper extremities show deep tendon reflexes at 2+ in the biceps, triceps tendons. Motor exam is approximately 3 on a scale of 5 with merchandise pickup/receiving associate strength, bicep and tricep flexion on the right and 5/5 on the left. Peripheral pulses are 2+ radial distribution. No peripheral edema is noted bilaterally. Options were discussed with the patient. The patient's old chart was reviewed as her current medication regimen updated. Current review of systems updated today as well. We will proceed with trigger point injection of the right trapezius. Risks were discussed including but not limited to bleeding, infection, possibility of extravasation of local anesthetic and numbness, pneumothorax, side effects of steroid medication and poor results regarding pain control. The patient understands and wished to proceed. The patient will return to the clinic in approximately 2 weeks. We will also order a CT scan for the cervical spine, and depending on results, may have her follow up with a neurosurgeon as well as she has had two cervical surgeries already. If her weakness gets worse, I did ask her report to the Emergency Department before the CT scan could be completed. The patient understands and agrees. The patient was given instruction as well as side effects to be aware of each of her medications. The patient has had appropriate K-TRACS reporting as well as appropriate urinalysis to date. We will refill this for 2-month period. Again, awaiting CT scan of cervical spine and possible treatment for that as well. DIAGNOSIS: Myofascial pain. PROCEDURE: Trigger point injections, right trapezius under sterile prep and drape using local anesthetic. MEDICATION INJECTED: A total of 80 mg Depo-Medrol plus 3 mL of 0.25% bupivacaine after negative aspiration at each injection site. CONDITION AT DISCHARGE: Stable. The patient tolerated the procedure well, had no complications. ABELINO LIMA MD DR: HERMELINDA/rick JOB#: [id number] / [id number]
== END ==
LOC: PNCL 11:17
PROVIDERS: ATTEND Anesthesiology
DX: M79.18 Myalgia, other site (principal); M47.22 Other spondylosis with radiculopathy, cervical region; M96.1 Postlaminectomy syndrome, not elsewhere classified
CPT/HCPCS: 20552; J1040; J3490

== ENCOUNTER → 2019-05-20 | Outpatient (CLI) | payer MEDICARE ==
[2015-01-17 18:17] VITALS: BP 144/72
[~2019-05-20] MED LIST changes: -BUPIVACAINE MPF 0.25% 10 ML VIAL. ONE; -methylPREDNISolone ACETATE 80 MG/ML VIAL. ONE
--- NOTE | 2019-05-20 11:19 | RAD ---
Cervical spine CT without contrast History: Right sided arm pain, radiculopathy Technique: Noncontrast CT imaging was performed of the cervical spine. Multiplanar images are reviewed. Exposure: One or more of the following individualized dose reduction techniques were utilized for this examination: 1. Automated exposure control 2. Adjustment of the mA and/or kV according to patient size 3. Use of iterative reconstruction technique. Comparison: MRI cervical spine December 19, 2012 Findings: There again has been anterior cervical fusion at C6-7, also interbody graft at this level although complete interbody fusion not apparent. Cervical vertebral body stature is overall maintained. AP alignment is within normal limits. There is likely minimal posterior bulge at C5-6, likely mild narrowing of the central canal on the order of 9-10 mm at this level. There is multilevel cervical facet degenerative change. Osseous neural foramina are not significantly narrowed. There is right C6 laminectomy defect. No cervical spine acute fracture is identified. Atlanto-axial distance is within normal limits. There is appropriate alignment of lateral masses of C1 relative to C2. Occipital condylar-C1 relationship is maintained. There is emphysema of the visualized lung apices. Impression: 1. There is intact anterior cervical fusion hardware C6-7. 2. There is likely mild spinal stenosis at C5-6 in part by bulge. 3. There is emphysema of the visualized lung apices. Electronically signed by: Jeff Ty MD (05/20/2019 11:16 AM) [facility]
== END ==
LOC: CT 09:46
PROVIDERS: ATTEND Anesthesiology
DX: M54.12 Radiculopathy, cervical region (principal); M48.02 Spinal stenosis, cervical region
CPT/HCPCS: 72125

== ENCOUNTER → 2019-07-22 | Outpatient (CLI) | payer MEDICARE ==
[2015-01-17 18:17] VITALS: BP 144/72
[~2019-07-22] MED LIST changes: +IOHEXOL 180 MG/ML 10 ML VIAL. ONE; +methylPREDNISolone ACETATE 40 MG/ML VIAL. ONE; +methylPREDNISolone ACETATE 80 MG/ML VIAL. ONE
--- NOTE | 2019-07-23 00:11 | PAIN ---
DATE OF SERVICE: 07/22/2019 PROGRESS NOTE FOR PAIN CLINIC DIAGNOSES: 1. Cervical radiculopathy with cervical spondylosis and cervical post-laminectomy syndrome. 2. Lumbar radiculopathy with lumbar degenerative disk disease. 3. Myofascial pain. 4. Bilateral shoulder joint pain. HISTORY OF PRESENT ILLNESS: The patient is a 48-year-old female who returns for followup status post medication management for Duragesic patches and hydromorphone. The patient has done very well with these for an extended period of time, reports no specific side effects. The patient reports increasing pain in the base of the neck and right upper extremity to a fairly severe point over the past 2-3 weeks. The patient reports no recent injury or action that she is aware of, but has had significant pain in the base of the neck radiating to the right upper extremity, into the thumb and first finger with numbness and tingling, can make it very hard to sleep, also difficulty with fine motor movements of her right hand. The patient has had a low anterior and posterior surgery on the cervical spine previously and stated experiencing some significant radicular pain at this time. The patient reports walking long distances causes some lightheadedness. Also, fingertips are painful on the right side as noted. The patient has been wearing a brace on her arm, which helps at night, but has not decreased the pain, can still awaken her from sleep at least 2-3 times. The patient reports it is aching, sharp, shooting, burning, radiating and becoming more constant. The patient reports no side effects with her medications, generally about 70% improvement, but recently the pain in the arm has overwhelmed this. The patient reports that her pain is a 9 on a scale of 10 at its worst over the past week, 7 on average, 5 at its least and is a 5 today. The patient reports no new motor or sensory deficits, no new changes. PHYSICAL EXAMINATION: VITAL SIGNS: The patient's blood pressure is 126/87, pulse is 96, respirations 16, temperature 98.5 degrees Fahrenheit. Height is 5 feet 4 inches. Weight is 184 pounds. GENERAL: The patient is awake, alert, oriented, appropriate, very pleasant demeanor. HEENT: Shows normocephalic, atraumatic. Extraocular movements are intact and symmetrical. Oral cavity shows mucous membranes are moist and pink. Dentition is intact. NECK: Shows anterior throat supple without palpable lymphadenopathy noted. Swallow reflex symmetrical. CHEST: Shows normal on inspection. Breath sounds clear to auscultation bilaterally. HEART: Shows S1 and S2 clear. No murmurs auscultated. ABDOMEN: Soft, nontender, nondistended. No palpable organomegaly is noted. No rebound or guarding demonstrated. BACK: Shows spine grossly in the midline. Normal appearing thoracic kyphosis, cervical lordotic curvature is slightly flattened with well-healed surgical scar noted in the posterior cervical distribution, with palpation shows some moderate tenderness in the cervical paraspinous musculature bilaterally, but only diffusely without significant radiation turning to the right superior medial trapezius, but not the left, but again without asymmetry or trigger points or radiation. The patient has good rotational motion of the cervical spine, somewhat guarded, both right and left lateral rotation at 45 degrees as well as full extension, full forward flexion without increase in pain. EXTREMITIES: Upper extremities show deep tendon reflexes 2+ in the biceps and triceps tendons. Motor exam is approximately 3 on a scale of 5 with right match up worker strength and 5/5 on the left. Peripheral pulses are 2+ radial. No peripheral edema is noted. Options were discussed with the patient. The patient's old chart was reviewed as her current medication regimen updated. Current review of systems updated today as well. We will proceed with a cervical epidural steroid injection today with fluoroscopic guidance. Risks were again discussed including, but not limited to bleeding, infection, possibility of epidural hematoma, subsequent neurological compromise, dural puncture, headaches, spinal cord and/or nerve damage, side effects of steroid medication and poor results regarding pain control. The patient understands and wished to proceed. The patient will return to clinic in approximately two months for followup or sooner as necessary. The patient was given refill prescription for both Duragesic patches as well as hydromorphone, Zofran and Imitrex with instructions and side effects to be aware of discussed with each medication. The patient has had appropriate K-TRACS reporting as well as appropriate urinalysis to control substances, prescription for a two-month period. The patient will follow up prior to two months if necessary and at two months for refill or as scheduled. DIAGNOSES: Cervical radiculopathy with cervical spondylosis and cervical post-laminectomy syndrome. PROCEDURE: Cervical epidural steroid injection, translaminar approach C6-C7 level using C-arm fluoroscopic guidance under sterile prep and drape using local anesthetic. MEDICATIONS INJECTED: A total of 120 mg of Depo-Medrol plus 5 mL of preservative-free normal saline and 2 mL of contrast. CONDITION AT DISCHARGE: Stable. The patient tolerated the procedure well, had no complications. ABELINO LIMA MD DR: HERMELINDA/rick JOB#: [id number] / [id number]
== END ==
LOC: PNCL 13:28
PROVIDERS: ATTEND Anesthesiology
DX: M47.812 Spondylosis without myelopathy or radiculopathy, cervical region (principal); M51.16 Intervertebral disc disorders with radiculopathy, lumbar region; M96.1 Postlaminectomy syndrome, not elsewhere classified; M79.18 Myalgia, other site
CPT/HCPCS: 62321; J1030; J1040; Q9965; 62323

== ENCOUNTER → 2019-10-14 | Outpatient (CLI) | payer MEDICARE ==
[2015-01-17 18:17] VITALS: BP 144/72
[~2019-10-14] MED LIST changes: -IOHEXOL 180 MG/ML 10 ML VIAL. ONE; +LAMO150T4 PO; +MELA3TAB4 PO; -MELA3TAB56 PO; +MIRT15TA90 PO; -PREG50CA PO; +PREG50CA91 PO; +TOPI25TA7 PO; +VENL225T PO; -methylPREDNISolone ACETATE 40 MG/ML VIAL. ONE; -methylPREDNISolone ACETATE 80 MG/ML VIAL. ONE
--- NOTE | 2019-10-14 16:54 | PAIN ---
DATE OF SERVICE: 10/14/2019 PROGRESS NOTE FOR PAIN CLINIC DIAGNOSES: 1. Cervical radiculopathy with cervical spondylosis and cervical post-laminectomy syndrome. 2. Lumbar radiculopathy with lumbar degenerative disk disease. 3. Myofascial pain. HISTORY OF PRESENT ILLNESS: The patient is a 48-year-old female who returns for followup status post medication management with both Duragesic patches and hydromorphone. The patient reports she has been doing very well and very stable on this, although she is having increased pain recently in the base of the neck and the right upper extremity. The patient reports it is worse with weightbearing, lifting items, repetitive motions with her right arm with some numbness and tingling and burning into the hand as well as the right shoulder, biceps and triceps region, anterior and posterior forearm and the whole hand. The patient reports it is aching and sharp, shooting, tingling, burning, radiating, becoming more severe with time. The patient reports it is a 9 on a scale of 10 at its worst over the past week, 7 on average, 5 at its least and is a 7 today. The patient reports no new motor or sensory deficits, no side effects with the medication. The patient reports with the medication alone, there is about 65%-70% improvement without side effects. The patient reports no new motor or sensory deficits. She does have some weakness in her legs as well, but this is secondary to the right arm and shoulder pain. The patient reports no new deficits. No bowel or bladder incontinence or other complaints. PHYSICAL EXAMINATION: VITAL SIGNS: The patient's blood pressure is 128/81, pulse 103, respirations are 16, temperature 99.1 degrees Fahrenheit, height is 5 feet 4 inches, weight is 189 pounds. GENERAL: The patient is awake, alert, oriented, appropriate, very pleasant demeanor. HEENT: Shows normocephalic, atraumatic. Extraocular movements are intact and symmetrical. Oral cavity: Mucous membranes moist and pink. Dentition is intact. NECK: Shows anterior throat supple without palpable lymphadenopathy noted. Swallow reflex symmetrical. CHEST: Shows normal on inspection. Breath sounds clear to auscultation bilaterally. HEART: Shows S1, S2 clear. No murmurs auscultated. ABDOMEN: Soft, nontender, nondistended. No palpable organomegaly is noted. No rebound or guarding demonstrated. BACK: Shows spine grossly in the midline. Normal appearing thoracic kyphosis and minor flattening of lumbar lordotic curvature and cervical lordotic curvature slightly flattened as well. Cervical paraspinous muscle shows symmetrical on inspection, on palpation shows some [id number] tenderness in the inferior aspect of the cervical paraspinous musculature bilaterally, but without significant radiation. The patient does show good rotational motion of cervical spine, both laterally with some slight guarding to the right compared to the left, but past 45 degrees closer to 90 degrees, full rotation as well as full extension, full forward flexion without significant increase in pain. EXTREMITIES: The patient's upper extremities show deep tendon reflexes 2+ in the biceps and triceps tendons. Motor exam is approximately 4 on a scale of 5 on the right with automotive heavy mechanic strength in bicep and tricep flexion and 5/5 on the left. Peripheral pulses are 2+. No peripheral edema bilaterally. Options were discussed with the patient. The patient's old chart was reviewed as her current medication regimen updated. Current review of systems updated today as well. We will proceed with a refill of the patient's hydromorphone as well as Duragesic patches and Imitrex. The patient was given instruction as well as side effects to be aware of with the medication. The patient has had appropriate K-TRACS reporting as well as appropriate urinalysis to date. We will refill the medications for a 2-month period. The patient was given instruction as well as side effects of each of these medications and will follow up in approximately 2 months or sooner as necessary. ABELINO LIMA MD DR: HERMELINDA/rick JOB#: [id number] / [id number]
== END ==
LOC: PNCL 12:50
PROVIDERS: ATTEND Anesthesiology
DX: M47.22 Other spondylosis with radiculopathy, cervical region (principal); M96.1 Postlaminectomy syndrome, not elsewhere classified; M51.16 Intervertebral disc disorders with radiculopathy, lumbar region; M79.18 Myalgia, other site
CPT/HCPCS: G0463

== ENCOUNTER → 2019-12-08 | Outpatient (CLI) | payer MEDICARE ==
[2015-01-17 18:17] VITALS: BP 144/72
--- NOTE | 2019-12-08 14:33 | PAIN ---
DATE OF SERVICE: 12/08/2019 PROGRESS NOTE FOR PAIN CLINIC DIAGNOSES: 1. Cervical radiculopathy with cervical spondylosis and post-cervical laminectomy syndrome. 2. Lumbar radiculopathy with lumbar degenerative disk disease. 3. Myofascial pain. 4. Shoulder joint pain bilaterally. 5. Migraine headaches. HISTORY OF PRESENT ILLNESS: The patient is a 49-year-old female, who returns for followup status post medication management with both Duragesic patches and hydromorphone. The patient reports she has done very well with this, also taking Zofran for some recent nausea that she has had with the headache and Imitrex for the headaches as well. The patient reports she did fairly well controlled with her headaches have been more frequent lately over the past few weeks. Also, she has pain in the base of the neck and shoulders and upper back and mid back as well, most of the time as she is doing fairly well with these with the medicines controlling the pain by about 80% or so, but lately has been about 70%. The patient reports her pain in the neck and shoulders have been worse, so was the migraine headaches, rated at 10 on a scale of 10 at its worse over the past week, 9 on average, 7 at its least and is a 9 today. The patient reports no new motor or sensory deficits, sometimes feels that there is a knot sticking in the back of her neck where her previous surgical scarring is, but can radiate pain into the mid back as well. The patient is having increased migraines over the last month, starting in the evenings. PHYSICAL EXAMINATION: VITAL SIGNS: The patient's blood pressure is 131/83, pulse 96, respirations are 16, temperature 98.8 degrees Fahrenheit, height is 5 feet 4 inches, weighs 192 pounds. GENERAL: The patient is awake, alert, oriented, appropriate, very pleasant demeanor. HEENT: Shows normocephalic, atraumatic. Extraocular movements are intact and symmetrical. Oral cavity: Mucous membranes moist and pink. Dentition is intact. NECK: Shows anterior throat supple without palpable lymphadenopathy noted. Swallow reflex symmetrical. CHEST: Shows normal on inspection. Breath sounds are clear bilaterally. HEART: Shows S1, S2 clear. No murmurs auscultated. ABDOMEN: Soft, nontender, nondistended. No palpable organomegaly is noted. No rebound or guarding demonstrated. BACK: Shows spine grossly in the midline. Normal appearing thoracic kyphosis, cervical lordotic curvature is flattened with well-healed surgical scar in the midline posteriorly. Cervical paraspinous musculature is symmetrical, but with palpation shows some moderate tenderness diffusely, slightly more on the right than the left, but without atrophy or hypertrophy. The patient does have a small cystic structure in the mid neck to the right of the surgical scar, which feels like a small sebaceous cyst under the skin and is fairly mobile, but is tender with palpation. EXTREMITIES: The patient's upper extremities show deep tendon reflexes 2+ in the biceps and triceps tendons. Motor exam is 4/5 with right batteryman strength, bicep and tricep flexion and 5/5 on the left. Deep tendon reflex is 2+ biceps bilaterally. Peripheral pulses are 2+ radial. No peripheral edema bilaterally. Options were discussed with the patient. The patient's old chart was reviewed as her current medication regimen updated. Current review of systems updated today as well. We will proceed with refill of the patient's medications, both Duragesic patches and hydromorphone as well as Imitrex and Zofran. The patient was given instruction as well as side effects about each of the medications. The patient had appropriate K-TRACS reporting as well as appropriate urinalysis to date. We will refill these for 2-month period. The patient will have a UA sample given today as well. She will follow up in approximately 2 months or sooner as necessary. ABELINO LIMA MD DR: HERMELINDA/rick JOB#: [id number] / [id number]
== END | disposition home or self-care (01) ==
LOC: PNCL 13:15
PROVIDERS: ATTEND Anesthesiology
DX: Z09 Encounter for follow-up examination after completed treatment for conditions other than malignant neoplasm (principal); M25.511 Pain in right shoulder; M25.512 Pain in left shoulder; M50.10 Cervical disc disorder with radiculopathy, unspecified cervical region; M47.892 Other spondylosis, cervical region; M96.1 Postlaminectomy syndrome, not elsewhere classified; M51.16 Intervertebral disc disorders with radiculopathy, lumbar region; G43.909 Migraine, unspecified, not intractable, without status migrainosus; M79.18 Myalgia, other site
CPT/HCPCS: G0463

== ENCOUNTER → 2020-04-14 | Outpatient (CLI) | payer MEDICARE ==
[2015-01-17 18:17] VITALS: BP 144/72
--- NOTE | 2020-04-14 11:03 | PDOC ---
Progress Note - Pain Clinic Date of Service: DOS: DATE: 04/14/20 TIME: 10:59 Diagnosis: Dx: Cervical radiculopathy with cervical spondylosis and post cervical laminectomy syndrome Lumbar radiculopathy with lumbar degenerative disc disease Myofascial pain Bilateral shoulder joint pain Migraine headaches History or Present Illness: HPI: 49-year-old female returns follow-up status post medication may reveal Duragesic patches and hydromorphone. Patient reports she has been doing fairly well but she is having to take a lot of ibuprofen and Tylenol on top of the hydromorphone to decrease the pain. Patient reports no significant side effects but still significant increase in pain in the base the neck shoulders upper back mid back low back upper extremities lower extremities. Patient scribes pain is aching and sharp tight shooting burning cramping radiating unbearable at times on and off in intensity better at night but is waking her 3-4 times at night. Patient reports is a hot burning sensation in the neck and shoulder as well as the back and legs over the past 2 months patient rates her pain is a 10 on scale 10 is worse over the past week 8 on average 6 its least is an 8 today. Patient reports no specific side effects with the medications and normally is about 75 to 80% better with the medications. Patient reports also some of her psychiatric medications have been recently changed and she feels this may have altered the effectiveness of her pain medicine as well. Physical Exam: VS: Pressure is 120/82 pulse 107 respirations 16 temperature is 98.1 F weight is 183 pounds PE: PHYSICAL EXAMINATION: GENERAL: The patient is awake, alert, oriented, appropriate, very pleasant demeanor HEENT: Shows normocephalic, atraumatic. Extraocular movements are intact and symmetrical. Oral cavity: Mucous membranes moist and pink NECK: Shows anterior throat supple without palpable lymphadenopathy noted. Swallow reflex symmetrical. CHEST: Shows normal on inspection. Breath sounds are clear bilaterally, no rales rhonchi or wheezes. HEART: Shows S1, S2 clear. No murmurs auscultated. ABDOMEN: Soft, nontender, nondistended, obese. No palpable organomegaly is noted. No rebound or guarding demonstrated. BACK: Shows spine grossly in the midline. Normal-appearing cervical lordotic curvature. There is slightly increased thoracic kyphosis, some minor flattening of the lumbar lordotic curvature. Lumbar paraspinous muscles show symmetrical on inspection, on palpation shows some moderate tenderness diffusely throughout the upper, middle and lower distribution of the paraspinous muscles bilaterally and also into the lower thoracic paraspinous musculature, firm and tender, but without specific trigger points, without radiation of pain. The patient has good rotational motion of the lumbar spine, both laterally as well as extension and flexion without significant difficulty. No tenderness over the spinous processes, sacrum or sacroiliac regions. EXTREMITIES: Lower extremities show deep tendon reflexes 2+ in the patellar and tendo calcaneus tendons. Motor exam is 4 on a scale of 5 with right dorsiflexion, extension, quadriceps and hamstring flexion and 5/5 on the left. Peripheral pulses are 1+ posterior tibial. No peripheral edema is noted bilaterally. Lower extremities are warm and dry to touch, equal in color and appearance. Upper extremities show deep tendon reflexes 2+ in the bicep and triceps tendons equal motor exam is strong with chief deputy court clerk strength rated 5 out of 5 as is bicep and tricep flexion bilaterally. Peripheral pulses are 2+ radial, no peripheral edema is noted. SKIN: Shows warm and dry, good turgor. No edema. No sores, rashes or bruising throughout. Procedure: Procedure: Options were discussed with the patient. Patient chart was reviewed as her current medication regimen updated current review of systems updated today as well. We will refill patient's medication Duragesic patch and hydromorphone increases from 4 mg to 2 tablets or 8 mg every 4 to 6 hours on a as needed basis. Patient was given instructions will side effects aware of these of her medications. Patient had appropriate K tracks report as well as appropriate urinalyses to date and we will refill this for 2-month period. Patient return to clinic in possibly 2 months or sooner as necessary. Medication Injected: Med Injected: None Condition at Discharge: Condition at Discharge: Patient discharge is stable ABELINO LIMA MD Apr 14, 2020 11:03
== END | disposition home or self-care (01) ==
LOC: PNCL 10:13
PROVIDERS: ATTEND Anesthesiology
DX: M51.16 Intervertebral disc disorders with radiculopathy, lumbar region (principal); M47.22 Other spondylosis with radiculopathy, cervical region; M79.18 Myalgia, other site; M25.512 Pain in left shoulder; M25.511 Pain in right shoulder; G43.909 Migraine, unspecified, not intractable, without status migrainosus; E11.9 Type 2 diabetes mellitus without complications; F41.9 Anxiety disorder, unspecified; F32.9 Major depressive disorder, single episode, unspecified; F17.210 Nicotine dependence, cigarettes, uncomplicated; Z98.51 Tubal ligation status; Z98.890 Other specified postprocedural states; Z79.899 Other long term (current) drug therapy; Z88.6 Allergy status to analgesic agent; Z88.8 Allergy status to other drugs, medicaments and biological substances
CPT/HCPCS: G0463

== ENCOUNTER → 2020-06-14 | Outpatient (CLI) | payer MEDICARE ==
[2015-01-17 18:17] VITALS: BP 144/72
[~2020-06-14] MED LIST changes: +HYDR25TA PO; +IBUP-1060 PO; +LAMO200T25 PO; +PRAZ2CAP2 PO; +TRAZ-118 PO
--- NOTE | 2020-06-14 11:08 | PDOC ---
Progress Note - Pain Clinic Date of Service: DOS: DATE: 06/14/20 TIME: 11:03 Diagnosis: Dx: Cervical radiculopathy with cervical spondylosis and cervical postlaminectomy syndrome Lumbar radiculopathy with lumbar degenerative disc disease Myofascial pain Right shoulder joint pain Migraine headaches History or Present Illness: HPI: 49-year-old female returns to follow-up status post medication management with hydromorphone and Duragesic patches. Patient reports she is doing fairly well and we had increased her hydromorphone to 8 mg from 4 mg and she is doing much better with this with about a 40% improvement overall. Patient reports that the medicine is lasting much longer where she is not constantly watching the clock for her next dose. Patient reports the patch is doing well to no side effects with either of the medications at this time. Patient reports still has difficulty with sleeping and her main complaint is neck pain base of the neck and shoulder especially the right upper extremity which is becoming more difficult with fine motor movements with the right hand. Patient reports her pain is a 9 on scale 10 is worse over the past week 7 on average 5 its least and is a 7 today. Patient ports aching sharp tight in the base the neck and shoulders tingling in the upper extremity specially on the right with some cramping pain in the neck and upper and mid back as well as the low back which can be severe at times with activity patient is generally reports she is able to speak activity and avoid strenuous activities that would exacerbate the pain at most times. Physical Exam: VS: Blood pressure is 132/78 pulse 105 respirations 18 temperature is 98.8 F height is 5 feet 4 inches weight is 176 pounds PE: PHYSICAL EXAMINATION: GENERAL: The patient is awake, alert, oriented, appropriate, very pleasant demeanor HEENT: Shows normocephalic, atraumatic. Extraocular movements are intact and symmetrical. Oral cavity: Mucous membranes moist and pink. Dentition is intact. NECK: Shows anterior throat supple without palpable lymphadenopathy noted. Swallow reflex symmetrical. CHEST: Shows normal on inspection. Breath sounds are clear bilaterally, no rales or rhonchi. HEART: Shows S1, S2 clear. No murmurs auscultated. ABDOMEN: Soft, nontender, nondistended, obese. No palpable organomegaly is noted. No rebound or guarding demonstrated. BACK: Shows spine grossly in the midline. Normal-appearing cervical lordotic curvature. Cervical paraspinous muscles show symmetrical with inspection, on palpation some moderate tenderness diffusely throughout the upper middle lower distribution the paraspinous muscles bilaterally without trigger points without radiation. Patient shows good rotation motion slightly guarded with extension flexion but not with right or left lateral Tatian was performed past 45 degrees closer to 90 degrees without significant difficulty. There is slightly increased thoracic kyphosis, some minor flattening of the lumbar lordotic curvature. Lumbar paraspinous muscles show symmetrical on inspection, on palpation shows some moderate tenderness diffusely throughout the upper, middle and lower distribution of the paraspinous muscles without specific trigger points, without radiation of pain. The patient has good rotational motion of the lumbar spine, both laterally as well as extension and flexion without significant difficulty. No tenderness over the spinous processes, sacrum or sacroiliac regions. EXTREMITIES: Upper extremities show deep tendon reflexes 2+ in the biceps and triceps tendons. Motor exam is 4 on a scale of 5 with right rib strength, biceps and triceps flexion and 5/5 on the left. Peripheral pulses are 2+ radial. No peripheral edema is noted bilaterally. Upper extremities are warm and dry to touch, equal in color and appearance. SKIN: Shows warm and dry, good turgor. No edema. No sores, rashes or bruising throughout. Procedure: Procedure: Options were discussed with the patient. Patient chart was reviewed as her current medication regimen updated current review of systems updated today as well. We will refill patient's medication at 8 mg hydromorphone as well as Duragesic patches at 50 mcg. Patient was given instructions well side effects beware of each of the medications. Patient has had appropriate K tracks report as well as appropriate urinalyses to date and we will make this a 2-month refill prescription. Also will renew patient's narcotic contract today. Patient will return to the clinic in approximately 2 months or sooner as necessary. Medication Injected: Med Injected: None Condition at Discharge: Condition at Discharge: Condition at discharge is stable. ABELINO LIMA MD Jun 14, 2020 11:08
== END | disposition home or self-care (01) ==
LOC: PNCL 10:31
PROVIDERS: ATTEND Anesthesiology
DX: M51.16 Intervertebral disc disorders with radiculopathy, lumbar region (principal); M47.22 Other spondylosis with radiculopathy, cervical region; M96.1 Postlaminectomy syndrome, not elsewhere classified; M79.18 Myalgia, other site; M25.511 Pain in right shoulder; G43.909 Migraine, unspecified, not intractable, without status migrainosus; E11.9 Type 2 diabetes mellitus without complications; F32.9 Major depressive disorder, single episode, unspecified; F41.9 Anxiety disorder, unspecified; F17.210 Nicotine dependence, cigarettes, uncomplicated; Z98.51 Tubal ligation status; Z98.890 Other specified postprocedural states; Z79.899 Other long term (current) drug therapy; Z88.6 Allergy status to analgesic agent; Z88.8 Allergy status to other drugs, medicaments and biological substances
CPT/HCPCS: G0463

== ENCOUNTER → 2020-08-09 | Outpatient (CLI) | payer MEDICARE ==
[2015-01-17 18:17] VITALS: BP 144/72
[~2020-08-09] MED LIST changes: +IOHEXOL 180 MG/ML 10 ML VIAL. ONE; +methylPREDNISolone ACETATE 40 MG/ML VIAL. ONE; +methylPREDNISolone ACETATE 80 MG/ML VIAL. ONE
--- NOTE | 2020-08-09 12:06 | PDOC ---
Progress Note - Pain Clinic Date of Service: DOS: DATE: 08/09/20 TIME: 12:01 Diagnosis: Dx: Cervical radiculopathy with cervical spondylosis cervical postlaminectomy syndrome Lumbar radiculopathy with lumbar degenerative disc disease Myofascial pain Right shoulder joint pain Migraine headaches History or Present Illness: HPI: 49-year-old female returns follow-up status post medication management with Duragesic patches and hydromorphone, patient reports that she has been doing very well with this been a very stable regimen without any specific side effects occasional constipation but controlled with increased hydration. Patient ports her chief complaint today however is pain in the base the neck and the right upper extremity radiating pain into the right arm posteriorly in the triceps and 2 in the biceps also the forearm both anteriorly and posteriorly as well as into the hand and fingers on the right side. Patient reports is a 10 on scale 10 is worse with the past week 8 on average 6 its least and is a 7 today reports is wa eugenio her from sleep frequently over the past 2 weeks or so patient reports no loss of motor function but significant fatigability with right upper extremity with the pain. Patient reports also worse with reaching her arm up over her head and repetitive motions especially driving. Patient reports no new motor or sensory deficits describes pain as sharp and shooting tingling burning and cramping in the right arm and base of the neck and shoulders. Patient reports her Duragesic patch as well as the hydromorphone are not decreasing the pain significantly as they usually do. Physical Exam: VS: Pressure is 118/78 pulse 90 respirations 18 temperature 98.5 F height 5 feet 2 inches weight is 174 pounds PE: PHYSICAL EXAMINATION: GENERAL: The patient is awake, alert, oriented, appropriate, very pleasant demeanor HEENT: Shows normocephalic, atraumatic. Extraocular movements are intact and symmetrical. Oral cavity: Mucous membranes moist and pink. NECK: Shows anterior throat supple without palpable lymphadenopathy noted. Swallow reflex symmetrical. CHEST: Shows normal on inspection. Breath sounds are clear bilaterally, no rales or rhonchi. HEART: Shows S1, S2 clear. No murmurs auscultated. ABDOMEN: Soft, nontender, nondistended, obese. No palpable organomegaly is noted. No rebound or guarding demonstrated. BACK: Shows spine grossly in the midline. Normal-appearing cervical lordotic curvature. Cervical paraspinous muscles show symmetrical on inspection on palpation some moderate tenderness diffusely bilaterally diffusely without significant radiation. Patient does show good rotation motion cervical spine both laterally as well as extension flexion without significant limitation. Patient has well-healed surgical scar in the posterior midline in the cervical distribution as well. There is slightly increased thoracic kyphosis, some minor flattening of the lumbar lordotic curvature. Lumbar paraspinous muscles show symmetrical on inspection, on palpation shows some moderate tenderness diffusely throughout the upper, middle and lower distribution of the paraspinous muscles without specific trigger points, without radiation of pain. The patient has good rotational motion of the lumbar spine, both laterally as well as extension and flexion without significant difficulty. No tenderness over the spinous processes, sacrum or sacroiliac regions. EXTREMITIES: Lower extremities show deep tendon reflexes 2+ in the patellar and tendo calcaneus tendons. Motor exam is 5 on a scale of 5 with right dorsiflexion, extension, quadriceps and hamstring flexion and 5/5 on the left. Peripheral pulses are 1+ posterior tibial. No peripheral edema is noted bilaterally. Lower extremities are warm and dry to touch, equal in color and appearance. Upper extremities show deep tendon reflexes 2+ in the bicep and triceps tendons. Motor exam strong with financial aid administrator strength rated at 4-5 on the right and 5 out of 5 on the left as is biceps and triceps flexion. Shoulder shrug is strong and intact without loss of strength on resistance as is abduction of the shoulders at 90 degrees bilaterally. Peripheral pulses are 2+ radial no peripheral edema is noted. SKIN: Shows warm and dry, good turgor. No edema. No sores, rashes or bruising throughout. Procedure: Procedure: Options were discussed with the patient. Patient chart reviews her current medication regimen updated current review of systems updated today as well. We will proceed with a cervical epidural steroid ejections today with fluoroscopic guidance. Risks were discussed including but not limited to: Bleeding, infection, possibility of epidural hematoma and subsequent neurological compromise, dural puncture, headaches, spinal cord and/or nerve damage, side effects of steroid medication, and poor results regarding pain control. Patient understands and wished to proceed. Return to clinic in approximately 2 months for follow-up, or sooner as necessary, patient was counseled as return appointment activity level and side effects to be aware of. Medication Injected: Med Injected: Procedure cervical epidural steroid injection at the C6-7 level, using local anesthetic under sterile prep and drape using C-arm fluoroscopic guidance under local anesthesia medications injected ; 120 mg Depo-Medrol + 5 mL normal saline and 2 mL contrast; condition at discharge is stable patient tolerated procedure well. and had no complications Condition at Discharge: Condition at Discharge: Condition at discharge stable, patient tolerated the procedure well and had no complications. ABELINO LIMA MD Aug 09, 2020 12:06
--- NOTE | 2020-08-09 12:07 | PDOC4 ---
PROCEDURE Procedure Patient was consented for cervical epidural steroid injection. Risks were d iscussed including but not limited to: Bleeding, infection, possibility of epidural hematoma and subsequent neurological compromise, dural puncture, headaches, spinal cord and/or nerve damage, side effects of steroid medication, and poor results regarding pain control. Patient understands and wished to proceed. Procedure cervical epidural steroid injection at the C6-7 level, using local anesthetic under sterile prep and drape using C-arm fluoroscopic guidance under local anesthesia medications injected ; 120 mg Depo-Medrol + 5 mL normal saline and 2 mL contrast; condition at discharge is stable patient tolerated procedure well. and had no complications ABELINO LIMA MD Aug 09, 2020 12:07
== END | disposition home or self-care (01) ==
LOC: PNCL 10:35
PROVIDERS: ATTEND Anesthesiology
DX: M47.22 Other spondylosis with radiculopathy, cervical region (principal); M51.16 Intervertebral disc disorders with radiculopathy, lumbar region; M96.1 Postlaminectomy syndrome, not elsewhere classified; M79.18 Myalgia, other site; M25.511 Pain in right shoulder; G43.909 Migraine, unspecified, not intractable, without status migrainosus; E11.9 Type 2 diabetes mellitus without complications; F41.9 Anxiety disorder, unspecified; F32.9 Major depressive disorder, single episode, unspecified; F17.210 Nicotine dependence, cigarettes, uncomplicated; Z98.51 Tubal ligation status; Z98.890 Other specified postprocedural states; Z72.89 Other problems related to lifestyle; Z79.899 Other long term (current) drug therapy; Z88.6 Allergy status to analgesic agent; Z88.8 Allergy status to other drugs, medicaments and biological substances
CPT/HCPCS: 62321; J1030; J1040; Q9965; 77002

== ENCOUNTER → 2020-10-04 | Outpatient (CLI) | payer MEDICARE ==
[2015-01-17 18:17] VITALS: BP 144/72
--- NOTE | 2020-10-04 11:51 | PDOC ---
Progress Note - Pain Clinic Date of Service: DOS: DATE: 10/04/20 TIME: 11:46 Diagnosis: Dx: Cervical radiculopathy with cervical spondylosis cervical postlaminectomy syndrome Lumbar radiculopathy with lumbar degenerative disc disease Myofascial pain Shoulder joint pain Migraine headaches History or Present Illness: HPI: 49-year-old female returns for follow-up status post cervical epidural steroid traction x1 and medication management with Dr. David luke and Duragesic patches. Patient reports about 75% improvement with the medications alone and without side effects. Patient reports he is doing fairly well but her spasticity has been increasing in the mid upper back as well as the base the neck and shoulders with radiation to right upper extremity patient reports her last injection was very helpful about 75% improved for about 3 to 4 weeks pain returning slowly down the base the neck and the right upper extremity some on the left mostly on the right patient reports is a 10 on scale 10 is worse over the past week 9 on average 8 its least is an 8 today. Patient reports her medication is doing well without significant side effects except for the Flexe ril which is giving her some restless leg type syndrome at night and has not been helping with the spasticity in her back. We will discuss this further and will change this to Zanaflex to see if this is more helpful. Patient reports otherwise the pain in the neck and shoulders as well as the upper mid back is aching and dull shooting tingling burning cramping can be constant severe worse with activity standing walking changing positions been awakened from sleep about every 3-4 hours over the past few weeks prior to that though she was doing much better after last injection with walking doing household activities travel with greater ease and comfort and sleeping better. Patient reports no new motor or sensory deficits no new bowel or bladder incontinence or other complaints. Physical Exam: VS: Blood pressure is 108/74 pulse 101 respirations 18 temperature 98.7 F height is 5 feet 4 inches weight is 173 pounds PE: PHYSICAL EXAMINATION: GENERAL: The patient is awake, alert, oriented, appropriate, very pleasant demeanor HEENT: Shows normocephalic, atraumatic. Extraocular movements are intact and symmetrical. Oral cavity: Mucous membranes moist and pink. Dentition is intact. NECK: Shows anterior throat supple without palpable lymphadenopathy noted. Swallow reflex symmetrical. CHEST: Shows normal on inspection. Breath sounds are clear bilaterally, distant but no rales or rhonchi. HEART: Shows S1, S2 clear. No murmurs auscultated. ABDOMEN: Soft, nontender, nondistended, obese. No palpable organomegaly is noted. No rebound or guarding demonstrated. BACK: Shows spine grossly in the midline. Normal-appearing cervical lordotic curvature. Cervical paraspinous muscles show symmetrical with inspection on pa lpation shows some moderate tenderness diffusely throughout the upper middle lower decrease the paraspinous muscle slightly more on the right than the left but without trigger points without radiation or asymmetry. Patient shows good rotation motion cervical spine somewhat guarded with some mild limitation in extension but not with forward flexion right or left lateral rotation. Again midline surgical scar is noted. There is slightly increased thoracic kyphosis, some minor flattening of the lumbar lordotic curvature. Lumbar paraspinous muscles show symmetrical on inspection, on palpation shows some moderate tenderness diffusely throughout the upper, middle and lower distribution of the paraspinous muscles without specific trigger points, without radiation of pain. The patient has good rotational motion of the lumbar spine, both laterally as well as extension and flexion without significant difficulty. No tenderness over the spinous processes, sacrum or sacroiliac regions. EXTREMITIES: Lower extremities show deep tendon reflexes 2+ in the patellar and tendo calcaneus tendons. Motor exam is 4 on a scale of 5 with right dorsiflexi on, extension, quadriceps and hamstring flexion and []/5 on the left. Peripheral pulses are 1 posterior tibial. No peripheral edema is noted bilaterally. Lower extremities are warm and dry to touch, equal in color and appearance. Upper extremity show deep tendon reflexes 2+ in the bicep and tricep tendons motor exam is strong with radiologist strength rated at 5 out of 5 and equal as is bicep and triceps flexion. Peripheral pulses are 2+ radial no peripheral edema is noted bilaterally. Shoulder shrug is strong and intact without loss of strength on resistance bilaterally. SKIN: Shows warm and dry, good turgor. No edema. No sores, rashes or bruising throughout. Procedure: Procedure: Options were discussed with the patient. Patient's old chart was reviewed as her current medication regimen updated current review of systems updated today as well. We will proceed with a second in the series cervical epidural to injection stable fluoroscopic guidance. Risks were discussed including but not limited to: Bleeding, infection, possibility of epidural hematoma and subsequent neurological compromise, dural puncture, headaches, spinal cord and/or nerve damage, side effects of steroid medication, and poor results regarding pain control. Patient understands and wished to proceed. We will refill patient's medication as she has had appropriate K tracks report as well as appropriate urinalyses to date for hydromorphone and Duragesic patches for a 2-month period. Patient will return to clinic in approximate 2 months, or sooner as necessary for follow-up, was counseled as to return appointment activity level and side effects to be aware of. Medication Injected: Med Injected: Procedure cervical epidural steroid injection at the C6-7 level, using local anesthetic under sterile prep and drape using C-arm fluoroscopic guidance under local anesthesia medications injected ; 120 mg Depo-Medrol + 5 mL normal saline and 2 mL contrast; condition at discharge is stable patient tolerated procedure well. and had no complications Condition at Discharge: Condition at Discharge: Condition at discharge stable, patient already procedure well and had no complications. ABELINO LIMA MD October 04, 2020 11:51
--- NOTE | 2020-10-04 11:51 | PDOC4 ---
PROCEDURE Procedure Patient was consented for cervical epidural steroid injection. Risks were d iscussed including but not limited to: Bleeding, infection, possibility of epidural hematoma and subsequent neurological compromise, dural puncture, headaches, spinal cord and/or nerve damage, side effects of steroid medication, and poor results regarding pain control. Patient understands and wished to proceed. Procedure cervical epidural steroid injection at the C6-7 level, using local anesthetic under sterile prep and drape using C-arm fluoroscopic guidance under local anesthesia medications injected ; 120 mg Depo-Medrol + 5 mL normal saline and 2 mL contrast; condition at discharge is stable patient tolerated procedure well. and had no complications ABELINO LIMA MD October 04, 2020 11:51
== END | disposition home or self-care (01) ==
LOC: PNCL 11:08
PROVIDERS: ATTEND Anesthesiology
DX: M47.22 Other spondylosis with radiculopathy, cervical region (principal); M96.1 Postlaminectomy syndrome, not elsewhere classified; M51.16 Intervertebral disc disorders with radiculopathy, lumbar region; M79.18 Myalgia, other site; M25.519 Pain in unspecified shoulder; G43.909 Migraine, unspecified, not intractable, without status migrainosus; E11.9 Type 2 diabetes mellitus without complications; F41.9 Anxiety disorder, unspecified; F32.9 Major depressive disorder, single episode, unspecified; F17.210 Nicotine dependence, cigarettes, uncomplicated; Z98.51 Tubal ligation status; Z79.899 Other long term (current) drug therapy; Z98.890 Other specified postprocedural states; Z88.6 Allergy status to analgesic agent; Z88.8 Allergy status to other drugs, medicaments and biological substances; Z72.89 Other problems related to lifestyle
CPT/HCPCS: 62321; J1030; J1040; Q9965

== ENCOUNTER → 2020-11-10 | Outpatient (CLI) | payer MEDICARE ==
[2015-01-17 18:17] VITALS: BP 144/72
[~2020-11-10] MED LIST changes: -IOHEXOL 180 MG/ML 10 ML VIAL. ONE; -methylPREDNISolone ACETATE 40 MG/ML VIAL. ONE; -methylPREDNISolone ACETATE 80 MG/ML VIAL. ONE
--- NOTE | 2020-11-10 11:44 | RAD ---
EXAM: CT CERVICAL AND THORACIC SPINE WITHOUT CONTRAST. HISTORY: Neck and thoracic back pain. TECHNIQUE: Computed tomography of the cervical spine and thoracic was performed without intravenous c ontrast. One or more of the following individualized dose reduction techniques were utilized for this examination: 1. Automated exposure control. 2. Adjustment of the mA and/or kV according to patient size. 3. Use of iterative reconstruction technique. COMPARISON: 05/20/2019. FINDINGS: There are anterior cervical discectomy and fusion changes at C6-7. An anterior plate is fix ed by screws at each level. This appears solid. Cervical alignment is maintained. There is mild osteo arthritis at C1/2. No fractures are identified. Intervertebral disc heights are maintained. There is no prevertebral soft tissue swelling. At C2-3, uncovertebral osteoarthritis is mild bilaterally. There is no significant stenosis. At C3-4, there is mild left uncovertebral osteoarthritis. There is no significant stenosis. At C4-5, there is a small posterior disc bulge. There is no significant stenosis. At C5-6, there is a small posterior disc bulge. There is no stenosis. At C6-7, the right neural foramen has been surgically decompressed. Right uncovertebral hypertrophy i s moderate to severe. Left uncovertebral osteoarthritis is mild. There is mild right lateral recess n arrowing. There is no clear neural foraminal stenosis. There is a mild thoracic dextrocurvature. Degenerative disc disease is moderate to severe at T9-10, w here there is endplate sclerosis. It is mild to moderate elsewhere throughout the mid thoracic spine. No fractures are identified. At T9-10, there is a moderate posterior disc bulge. This results in moderate central canal stenosis w ith minimal anteroposterior central canal diameter 7 mm. There is likely a superimposed central left paracentral protrusion. Neural foraminal stenosis is mild bilaterally at this level. Additional small disc herniations or bulges are noted at T6-7 and T10-T12. There is no additional adriana nosis. Lung windows demonstrate mild to moderate centrilobular emphysema with apical predominance. IMPRESSION: 1. C6-7 anterior cervical discectomy and fusion with right foraminal decompression. There is mild res idual right lateral recess stenosis at this level. 2. Moderate to severe degenerative disc disease at T9-T10. A moderate disc bulge and herniation at th is level results in moderate central canal stenosis with more severe left lateral recess stenosis. MR I could further characterize stenosis if there is persistent concern. Electronically signed by: Abundio Blackwell MD (11/10/2020 11:42 AM) [id number]
== END | disposition home or self-care (01) ==
LOC: CT 10:59
PROVIDERS: ATTEND Anesthesiology
DX: M51.34 Other intervertebral disc degeneration, thoracic region (principal); M54.2 Cervicalgia; M48.02 Spinal stenosis, cervical region; M48.04 Spinal stenosis, thoracic region; J43.2 Centrilobular emphysema; E11.9 Type 2 diabetes mellitus without complications; F41.9 Anxiety disorder, unspecified; F32.9 Major depressive disorder, single episode, unspecified; F17.210 Nicotine dependence, cigarettes, uncomplicated; Z98.51 Tubal ligation status; Z98.890 Other specified postprocedural states; Z79.899 Other long term (current) drug therapy; Z88.6 Allergy status to analgesic agent; Z88.8 Allergy status to other drugs, medicaments and biological substances; Z72.89 Other problems related to lifestyle
CPT/HCPCS: 72125; 72128

== ENCOUNTER → 2020-12-19 | Outpatient (CLI) | payer MEDICARE ==
[2015-01-17 18:17] VITALS: BP 144/72
[~2020-12-19] MED LIST changes: +FENT1PAT17 TD; +HYDR8TAB29 PO; +NALD0.2T3 PO; +TIZA4TAB2 PO
--- NOTE | 2020-12-19 12:59 | PDOC ---
Progress Note - Pain Clinic Date of Service: DOS: DATE: 12/19/20 TIME: 12:54 Diagnosis: Dx: Cervical radiculopathy with cervical spondylosis cervical postlaminectomy syndrome Lumbar to colopathy lumbar degenerative disc disease Myofascial pain Shoulder joint pain right Migraine headaches History or Present Illness: HPI: 50-year-old female returns for follow-up status post cervical epidural steroid injection was recently October 04, 2020. Patient ports she did very well with about a 75% improvement after the injection the pain returning now over the past few weeks though in the base the neck and into the upper extremities more on the right than the left radiating the posterior deltoid into the triceps also the biceps and forearm and hand with numbness and tingling on the right side patient reports her pain is a 9 on scale 10 is worse over the past week 8 on average 7 its least is a 7 today. Patient scribes aching sharp dull tight shooting, tingling cramping and radiating and severe. Patient reports some fatigability with the right upper extremity but no overt motor loss. Patient reports he was recently hospitalized for diverticulitis and has some significant constipation still as a side effect from her medications. Patient doing well with the Duragesic patch as well as hydromorphone but again with some constipation using [id number] laxatives without significant improvement. Physical Exam: VS: Blood pressure 146/83 pulse 105 respirations 18 temperature 99.0 F height is 5 foot 4 inches weight is 174 pounds. PE: PHYSICAL EXAMINATION: GENERAL: The patient is awake, alert, oriented, appropriate, very pleasant in demeanor HEENT: Shows normocephalic, atraumatic. Extraocular movements are intact and symmetrical. NECK: Shows anterior throat supple without palpable lymphadenopathy noted. Swallow reflex symmetrical. CHEST: Shows normal on inspection. Breath sounds are clear bilaterally, distant but no rales or rhonchi. HEART: Shows S1, S2 clear. No murmurs auscultated. ABDOMEN: Soft, nontender, nondistended, obese. BACK: Shows spine grossly in the midline. Normal-appearing cervical lordotic curvature. Cervical paraspinous muscles show symmetrical with inspection on palpation some moderate tenderness more in the right than the left in the inferior and middle distribution of the cervical paraspinous musculature without radiation without specific trigger points. Patient shows good rotation of motion cervical spine though slightly guarded to the right past 45 degrees but with full extension full forward flexion full left rotation. There is slightly increased thoracic kyphosis, some minor flattening of the lumbar lordotic curvature. Lumbar paraspinous muscles show symmetrical on inspection, on palpation shows some moderate tenderness diffusely throughout the upper, middle and lower distribution of the paraspinous muscles, but without specific trigger points, without radiation of pain. The patient has good rotational motion of the lumbar spine, both laterally as well as extension and flexion without significant difficulty. No tenderness over the spinous processes, sacrum or sacroiliac regions. EXTREMITIES: Lower extremities show deep tendon reflexes 2+ in the patellar and tendo calcaneus tendons. Motor exam is 5 on a scale of 5 with right dorsiflexion, extension, quadriceps and hamstring flexion and 5/5 on the left. Peripheral pulses are 1+ posterior tibial. No peripheral edema is noted bilaterally. Lower extremities are warm and dry to touch, equal in color and appearance. Upper extremity show deep tendon reflexes 2+ in the bicep tricep tendons, motor exam is strong with positive with 4-5 strength on the right and 5 out of 5 on the left. Peripheral pulses are 2+ radial, no peripheral edema is noted bilaterally. Shoulder shrug is strong and intact without loss of strength on resistance as is abduction of the shoulder 90 degrees bilaterally. SKIN: Shows warm and dry, good turgor. No edema. No sores, rashes or bruising throughout. Procedure: Procedure: Options discussed with patient. Patient chart reviews her current medication regimen updated and current review of systems updated today as well. We will hold on further injections at this time as patient is doing better. We will electronically prescribed patient's Duragesic patch as well as hydromorphone for 1 month period. Gabapentin and Zanaflex will be prescribed with instructions and side effects beware of discussed as well. Also will add Symproic for constipation. Patient given instructions well side effects aware with each of the medications. Patient has had appropriate K tracks report as well as appropriate urinalyses to date and we will make this a 1 month refill. Medication Injected: Med Injected: None Condition at Discharge: Condition at Discharge: Condition at discharge is stable. ABELINO LIMA MD Dec 19, 2020 12:59
== END | disposition home or self-care (01) ==
LOC: PNCL 12:22
PROVIDERS: ATTEND Anesthesiology
DX: M47.22 Other spondylosis with radiculopathy, cervical region (principal); M96.1 Postlaminectomy syndrome, not elsewhere classified; M51.16 Intervertebral disc disorders with radiculopathy, lumbar region; M79.18 Myalgia, other site; G43.909 Migraine, unspecified, not intractable, without status migrainosus; M25.511 Pain in right shoulder; E11.9 Type 2 diabetes mellitus without complications; F41.9 Anxiety disorder, unspecified; F32.9 Major depressive disorder, single episode, unspecified; Z79.899 Other long term (current) drug therapy; Z98.51 Tubal ligation status; Z98.890 Other specified postprocedural states; Z88.6 Allergy status to analgesic agent; Z88.8 Allergy status to other drugs, medicaments and biological substances
CPT/HCPCS: 99212; G0463

== ENCOUNTER → 2021-02-13 | Outpatient (CLI) | payer MEDICARE ==
[2015-01-17 18:17] VITALS: BP 144/72
[~2021-02-13] MED LIST changes: +DICY10CA3 PO; +DOCU50CA9 PO; +FAMO20TA5 PO; +SIME80TA14 PO; +TRAZ-123 PO
--- NOTE | 2021-02-13 12:09 | PDOC ---
Progress Note - Pain Clinic Date of Service: DOS: DATE: 02/13/21 TIME: 12:05 Diagnosis: Dx: Cervical radiculopathy with cervical spondylosis and cervical postlaminectomy syndrome Lumbar radiculopathy with lumbar degenerative disc disease Myofascial pain Shoulder joint pain right Migraine headache History or Present Illness: HPI: 50-year-old female returns for follow-up status post medication management with both Duragesic patches and hydromorphone also gabapentin and Zanaflex with patient reporting fairly stable pain control with this regimen about 70 to 75% overall without any specific side effects. Patient reports still significant pain in the base neck and shoulders upper back and neck low back and left lower extremity which is worse over the past 4 weeks with radicular pain in the left lower extremity posterior gluteus thigh and into the foot on the left side. Patient reports a 10 on scale 10 is worse over the past week 8 on average 6 its least and is a 6 today. Patient reports is tingling and burning in the neck and shoulders aching and dull in the low back sometimes sharp and shooting in the left leg. Patient also has a shooting pain in the right upper extremity as previously. Patient reports no new motor or sensory deficits no new side effects with the medication she has had appropriate K tracks reporting as well as appropriate urinalyses to date. Physical Exam: VS: Blood pressure is 98/62 pulse 81 respirations 18 temperature 98.4 F weight is 167 pounds PE: PHYSICAL EXAMINATION: GENERAL: The patient is awake, alert, oriented, appropriate, very pleasant in demeanor HEENT: Shows normocephalic, atraumatic. Extraocular movements are intact and symmetrical. Oral cavity: Mucous membranes moist and pink. Dentition is intact NECK: Shows anterior throat supple without palpable lymphadenopathy noted. Swallow reflex symmetrical. CHEST: Shows normal on inspection. Breath sounds are clear bilaterally, no rales rhonchi or wheezes auscultated. HEART: Shows S1, S2 clear. No murmurs auscultated. ABDOMEN: Soft, nontender, nondistended, obese. No palpable organomegaly is noted. BACK: Shows spine grossly in the midline. Normal-appearing cervical lordotic curvature. Cervical paraspinous muscles show symmetrical with inspection, on palpation some moderate tenderness diffusely in the inferior aspect the cervical paraspinous muscles and the superior medial trapezius bilaterally somewhat more tender on the right than left but present bilaterally without specific trigger points or radiation. Patient shows good rotation of motion cervical spine both laterally as well as extension flexion without significant increase in pain. There is slightly increased thoracic kyphosis, some minor flattening of the lumbar lordotic curvature. Lumbar paraspinous muscles show symmetrical on inspection, on palpation shows some moderate tenderness diffusely throughout the upper, middle and lower distribution of the paraspinous muscles, but without specific trigger points, without radiation of pain. The patient has good rotational motion of the lumbar spine, both laterally as well as extension and flexion without significant difficulty. No tenderness over the spinous processes, sacrum or sacroiliac regions. EXTREMITIES: Lower extremities show deep tendon reflexes 2+ in the patellar and tendo calcaneus tendons. Motor exam is 5 on a scale of 5 with right dorsiflexion, extension, quadriceps and hamstring flexion and 5/5 on the left. Peripheral pulses are 1+ posterior tibial. No peripheral edema is noted bilaterally. Lower extremities are warm and dry to touch, equal in color and appearance. Upper extremities show deep tendon reflexes 2+ in the bicep and triceps tendons motor exam is 4 to scale 5 the right test design engineer strength bicep and tricep flexion 5/5 on the left. SKIN: Shows warm and dry, good turgor. No edema. No sores, rashes or bruising throughout. Procedure: Procedure: Options were discussed with the patient. Patient chart was reviewed as her current medication regimen updated current review of systems updated today as well. We will refill patient's Duragesic patch as well as hydromorphone via electronic prescription. Patient will be given Medrol Dosepak as well as she is done very well with these in the past and reports she would like to wait for cervical epidural steroid injection until her next visit. Given instructions well side effects aware of these of medications and will follow up as scheduled approximately 1 month. Medication Injected: Med Injected: None Condition at Discharge: Condition at Discharge: Condition at discharge is stable. ABELINO LIMA MD Feb 13, 2021 12:09
== END | disposition home or self-care (01) ==
LOC: PNCL 11:02
PROVIDERS: ATTEND Anesthesiology
DX: M47.22 Other spondylosis with radiculopathy, cervical region (principal); M51.16 Intervertebral disc disorders with radiculopathy, lumbar region; M96.1 Postlaminectomy syndrome, not elsewhere classified; M79.18 Myalgia, other site; M25.511 Pain in right shoulder; G43.909 Migraine, unspecified, not intractable, without status migrainosus; E11.9 Type 2 diabetes mellitus without complications; F41.9 Anxiety disorder, unspecified; F32.9 Major depressive disorder, single episode, unspecified; F17.210 Nicotine dependence, cigarettes, uncomplicated; Z72.89 Other problems related to lifestyle; Z79.899 Other long term (current) drug therapy; Z98.890 Other specified postprocedural states
CPT/HCPCS: 99212; G0463

== ENCOUNTER → 2021-03-20 | Outpatient (CLI) | payer MEDICARE ==
[2015-01-17 18:17] VITALS: BP 144/72
[~2021-03-20] MED LIST changes: -DULO60CA6 PO; +DULO60CA7 PO
--- NOTE | 2021-03-20 11:36 | PDOC ---
Progress Note - Pain Clinic Date of Service: DOS: DATE: 03/20/21 TIME: 11:33 Diagnosis: Dx: Cervical radiculopathy with cervical spinal stenosis and cervical postlaminectomy syndrome Lumbar radiculopathy lumbar degenerative disc disease Myofascial pain History or Present Illness: HPI: Telemedicine visit today for follow-up with identity verified with date of as well as full name, total time spent 14 minutes. Patient with medication management is doing very well with the medications and is near time for refill of both her Duragesic patch and hydromorphone patient reports doing very well with each of these without any significant side effects that does allow her to maintain her daily activities with good comfort patient reports about 75% improvement sometimes better than that she is been very active over the past few weeks has been doing some traveling as well and the pain is been slightly increased because of that. Patient reports no motor or sensory deficits no bowel or bladder incontinence no other side effects from the medications as noted. Patient has had appropriate K tracks report as well as appropriate urinalyses to date. We will refill patient's medication both Duragesic patch and hydromorphone via electronic prescription patient is given instructions well side effects aware of each of the medications. Patient to follow-up as scheduled in approximately 4 weeks. Physical Exam: PE: ABELINO LIMA MD Mar 20, 2021 11:36
== END | disposition home or self-care (01) ==
LOC: PNCL 08:30
PROVIDERS: ATTEND Anesthesiology
DX: M51.16 Intervertebral disc disorders with radiculopathy, lumbar region (principal); M48.02 Spinal stenosis, cervical region; M96.1 Postlaminectomy syndrome, not elsewhere classified; M79.18 Myalgia, other site; E11.9 Type 2 diabetes mellitus without complications; F41.9 Anxiety disorder, unspecified; F32.9 Major depressive disorder, single episode, unspecified; F17.210 Nicotine dependence, cigarettes, uncomplicated; Z98.51 Tubal ligation status; Z79.899 Other long term (current) drug therapy; Z98.890 Other specified postprocedural states; Z72.89 Other problems related to lifestyle; Z88.6 Allergy status to analgesic agent; Z88.8 Allergy status to other drugs, medicaments and biological substances
CPT/HCPCS: 99212; G0463

== ENCOUNTER → 2021-04-03 | Outpatient (CLI) | payer MEDICARE ==
[2015-01-17 18:17] VITALS: BP 144/72
[~2021-04-03] MED LIST changes: +CYCL10TA19 PO; -CYCL10TA2 PO; +TIZA-75 PO; -TIZA4TAB2 PO
--- NOTE | 2021-04-03 10:44 | PDOC ---
Progress Note - Pain Clinic Date of Service: DOS: DATE: 04/03/21 TIME: 10:40 Diagnosis: Dx: Cervical radiculopathy with cervical spondylosis cervical postlaminectomy syndrome Lumbar to colopathy with lumbar degenerative disc disease Myofascial pain Shoulder joint pain, right Migraine headaches History or Present Illness: HPI: 50-year-old female returns for follow-up status post medication management with both Duragesic patches and hydromorphone patient reports doing very well at this with a small amount of constipation when she takes a laxative maybe every other day or so but otherwise doing very well with about a 75 to 80% improvement by her estimation with the pain from the medication patient reports no skin irritation with a Duragesic patch and no other side effects. Patient reports her pain is a 10 on scale 10 is worse over the past week 9 on average 7 its least is a 9 today patient was aching sharp shooting tingling burning cramping in the base the neck shoulders upper back and neck mid back and low back into bilateral lower extremities as well. Patient report is worse with walking standing changing positions but she also has considerable difficult complaints of gastrointestinal distress and is seeing a new manager brand later this month. Patient reports has had some shortness of breath but it tends to correlate with anxiety as well as with a significant reflux as well. Patient also complains of some swelling in the bilateral feet and ankles left greater than right. Physical Exam: VS: Blood pressure is 109/67 pulse 98 respirations are 16 temperature is 98.7 F weight is 165 pounds. PE: PHYSICAL EXAMINATION: GENERAL: The patient is awake, alert, oriented, appropriate, very pleasant in demeanor HEENT: Shows normocephalic, atraumatic. Extraocular movements are intact and symmetrical. Oral cavity: Mucous membranes moist and pink. Dentition is intact. NECK: Shows anterior throat supple without palpable lymphadenopathy noted. Swallow reflex symmetrical. CHEST: Shows normal on inspection. Breath sounds are clear bilaterally, distant no rales rhonchi wheezes auscultated. HEART: Shows S1, S2 clear. No murmurs auscultated. ABDOMEN: Soft, nontender, nondistended, obese. No palpable organomegaly is noted. Mildly tender in the epigastric region bilaterally. BACK: Shows spine grossly in the midline. Normal-appearing cervical lordotic curvature. There is slightly increased thoracic kyphosis, some minor flattening of the lumbar lordotic curvature. Lumbar paraspinous muscles show symmetrical on inspection, on palpation shows some moderate tenderness diffusely throughout the upper, middle and lower distribution of the paraspinous muscles without specific trigger points, without radiation of pain. The patient has good rotational motion of the lumbar spine, both laterally as well as extension and flexion without significant difficulty. EXTREMITIES: Lower extremities show deep tendon reflexes 2 in the patellar and tendo calcaneus tendons. Motor exam is 5 on a scale of 5 with right dorsiflexion, extension, quadriceps and hamstring flexion and 5/5 on the left. Peripheral pulses are 1 posterior tibial. 1-2+ peripheral edema is noted bilaterally in the ankles to approximate half the distance of the knee on the anterior tibia. Lower extremities are warm and dry to touch, equal in color and appearance. SKIN: Shows warm and dry, good turgor. No edema. No sores, rashes or bruising throughout. Procedure: Procedure: Options were discussed with the patient. Patient old chart was reviews, her current medication regimen updated, current review of systems updated today as well. We will refill patient's fentanyl as well as hydromorphone via electronic prescription. Patient was given instructions well side effects beware of the each of these. Patient has had appropriate K tracks report as well as appropriate urinalyses to date and we will have a urinalysis drawn today as routine screening as well. Patient return to clinic in approximate 4 weeks as scheduled. Medication Injected: Med Injected: None Condition at Discharge: Condition at Discharge: Condition at discharge is stable. ABELINO LIMA MD Apr 03, 2021 10:44
== END | disposition home or self-care (01) ==
LOC: PNCL 10:05
PROVIDERS: ATTEND Anesthesiology
DX: M47.22 Other spondylosis with radiculopathy, cervical region (principal); M96.1 Postlaminectomy syndrome, not elsewhere classified; M51.36 Other intervertebral disc degeneration, lumbar region; M25.511 Pain in right shoulder; G43.909 Migraine, unspecified, not intractable, without status migrainosus; M79.18 Myalgia, other site; E11.9 Type 2 diabetes mellitus without complications; F32.9 Major depressive disorder, single episode, unspecified; F41.9 Anxiety disorder, unspecified; F17.210 Nicotine dependence, cigarettes, uncomplicated; Z98.890 Other specified postprocedural states; Z79.899 Other long term (current) drug therapy
CPT/HCPCS: 99212; G0463

== ENCOUNTER → 2021-05-09 | Outpatient (CLI) | payer MEDICARE ==
[2015-01-17 18:17] VITALS: BP 144/72
[~2021-05-09] MED LIST changes: +OXYC10TA PO
--- NOTE | 2021-05-09 15:48 | PDOC ---
Progress Note - Pain Clinic Date of Service: DOS: DATE: 05/09/21 TIME: 15:45 Diagnosis: Dx: Cervical radiculopathy with cervical spondylosis and postlaminectomy syndrome Lumbar radiculopathy with lumbar degenerative disc disease Myofascial pain Shoulder joint pain Migraine headaches History or Present Illness: HPI: Telemedicine visit today with patient with date of for verification as well as full name, total time spent 14 minutes 50-year-old female via telemedicine visit today regarding a refill of medications and that her hydromorphone is not decrease in pain more than of an hour or 2 she is having difficulty sleeping because the pain is waking her from sleep and appears to be developing some physiologic tolerance to the medication as needed on this for extended period of time although she is only having some constipation as side effects she is having less and less efficacy with the pain control. Patient reports Duragesic patch still doing fairly well and feels this is helpful without any skin irritation or other side effects. Patient is taking Amitiza now she was able to obtain some through a financial program with the company as she was unable to afford it prior to this and has gotten this from her heel attacher wood. Patient reports it helps but does not decrease the abdominal pain significantly. Patient is had appropriate K tracks portables appropriate urinalyses to date and we will change the hydromorphone to oxycodone 10 mg without Tylenol as well as maintain Duragesic patch at 50 mcg every 72 hours. Patient is give instructions well side effects aware of each of the medications and will follow up in approximately 4 weeks as scheduled. Physical Exam: PE: ABELINO LIMA MD May 09, 2021 15:48
== END | disposition home or self-care (01) ==
LOC: PNCL 14:30
PROVIDERS: ATTEND Anesthesiology
DX: M50.10 Cervical disc disorder with radiculopathy, unspecified cervical region (principal); M96.1 Postlaminectomy syndrome, not elsewhere classified; M51.16 Intervertebral disc disorders with radiculopathy, lumbar region; M79.18 Myalgia, other site; G43.909 Migraine, unspecified, not intractable, without status migrainosus; E11.9 Type 2 diabetes mellitus without complications; F41.9 Anxiety disorder, unspecified; F32.9 Major depressive disorder, single episode, unspecified; F17.210 Nicotine dependence, cigarettes, uncomplicated; Z72.89 Other problems related to lifestyle; Z79.899 Other long term (current) drug therapy; Z98.890 Other specified postprocedural states; Z88.6 Allergy status to analgesic agent; Z88.8 Allergy status to other drugs, medicaments and biological substances
CPT/HCPCS: 99212; G0463

== ENCOUNTER → 2021-05-29 | Outpatient (CLI) | payer MEDICARE ==
[2015-01-17 18:17] VITALS: BP 144/72
[~2021-05-29] MED LIST changes: +FENT1PAT19 TD; +FENT1PAT19 TP
--- NOTE | 2021-05-29 11:14 | PDOC ---
Progress Note - Pain Clinic Date of Service: DOS: DATE: 05/29/21 TIME: 11:10 Diagnosis: Dx: Cervical radiculopathy with cervical spondylosis and cervical postlaminectomy syndrome Lumbar radiculopathy lumbar degenerative disc disease Myofascial pain Right shoulder joint pain Migraine headache History or Present Illness: HPI: 50-year-old female status post medication management with Duragesic patches and hydromorphone. Patient reports doing very well with these with about a 70% improvement with medications alone patient reports she still has some pain low back and radiating into the lower extremities more on the left than the right but present bilaterally but is fairly manageable currently patient reports he is doing stretching strength exercises which have been helping anticipate losing weight which is helpful as well patient reports still pain the base the neck and shoulders upper back mid back low back and lower extremities describes pain as shooting in the arms and legs tingling in the back burning and cramping in the back as well as the shoulders and the neck slightly more on the right side in the neck and shoulder which can be radiating constant as well patient reports her pain a 9 on scale 10 is worst 6 on average 3 distillation is a 5 today patient reports no bowel or bladder incontinence no side effects with her medications and has had appropriate K tracks portables appropriate urinalyses to date. Physical Exam: VS: Blood pressure 100/66 pulse 87 respirations 16 temperature 98.4 F weight is 155 pounds PE: PHYSICAL EXAMINATION: GENERAL: The patient is awake, alert, oriented, appropriate, very pleasant in demeanor HEENT: Shows normocephalic, atraumatic. Extraocular movements are intact and symmetrical. Oral cavity: Mucous membranes moist and pink. Dentition is intact. NECK: Shows anterior throat supple without palpable lymphadenopathy noted. Swallow reflex symmetrical. CHEST: Shows normal on inspection. Breath sounds are clear bilaterally, distant but no rales or rhonchi. HEART: Shows S1, S2 clear. No murmurs auscultated. ABDOMEN: Soft, nontender, nondistended. No palpable organomegaly is noted. No rebound or guarding demonstrated. BACK: Shows spine grossly in the midline. Normal-appearing cervical lordotic curvature. Cervical paraspinous muscles show symmetrical inspection on palpation some moderate tenderness significantly more on the right side in the middle and lower distribution the paraspinous muscles also in the superior medial trapezius on the right. There is slightly increased thoracic kyphosis, some minor flattening of the lumbar lordotic curvature. Lumbar paraspinous mu scles show symmetrical on inspection, on palpation shows some moderate tenderness diffusely throughout the upper, middle and lower distribution of the paraspinous muscles without specific trigger points, without radiation of pain. The patient has good rotational motion of the lumbar spine, both laterally as well as extension and flexion without significant difficulty. EXTREMITIES: Lower extremities show deep tendon reflexes 2+ in the patellar and tendo calcaneus tendons. Motor exam is 5 on a scale of 5 with right dorsiflexion, extension, quadriceps and hamstring flexion and 5/5 on the left. Peripheral pulses are 1+ posterior tibial. No peripheral edema is noted bilaterally. Lower extremities are warm and dry. SKIN: Shows warm and dry, good turgor. No edema. No sores, rashes or bruising throughout. Procedure: Procedure: Options were discussed with patient. Patient chart reviews her current medication regimen updated current review of systems updated today as well. We will refill patient's Duragesic patch as well as hydromorphone also Imitrex patient was given instructions well side effects beware of each of the medications. Patient will follow up in approximately 30 days as scheduled. Medication Injected: Med Injected: None Condition at Discharge: Condition at Discharge: Condition at discharge is stable. ABELINO LIMA MD May 29, 2021 11:14
== END | disposition home or self-care (01) ==
LOC: PNCL 10:05
PROVIDERS: ATTEND Anesthesiology
DX: M51.16 Intervertebral disc disorders with radiculopathy, lumbar region (principal); M96.1 Postlaminectomy syndrome, not elsewhere classified; M79.18 Myalgia, other site; M47.22 Other spondylosis with radiculopathy, cervical region; G43.909 Migraine, unspecified, not intractable, without status migrainosus; M25.511 Pain in right shoulder; E11.9 Type 2 diabetes mellitus without complications; F41.9 Anxiety disorder, unspecified; F32.9 Major depressive disorder, single episode, unspecified; F17.210 Nicotine dependence, cigarettes, uncomplicated; Z98.51 Tubal ligation status; Z98.890 Other specified postprocedural states; Z88.6 Allergy status to analgesic agent; Z79.899 Other long term (current) drug therapy; Z72.89 Other problems related to lifestyle
CPT/HCPCS: 99212; G0463

== ENCOUNTER → 2021-07-10 | Outpatient (CLI) | payer MEDICARE ==
[2015-01-17 18:17] VITALS: BP 144/72
[~2021-07-10] MED LIST changes: -LURA40TA PO; +LURA40TA2 PO
--- NOTE | 2021-07-10 15:14 | NUR ---
Phone Visit: Confirmed pt identity by name and . Phone visit for routine refill of oxycodone 10mg and fantanyl patch 75mcg. Pt describes her average level of pain as 8/10 before medication, and 4/10 after medication. Denies any new medications, medical problems. or allergies. States she is chronically constipated and her primary care recommends amitiza. Also c/o exascerbation in N/V and back spasms today. Confirmed pharmacy as [facility]; follow up appointment scheduled for 07/24/2021. Transferred call to Dr. Polanco for focused assessment.
--- NOTE | 2021-07-10 15:34 | PDOC ---
Progress Note - Pain Clinic Date of Service: DOS: DATE: 07/10/21 TIME: 15:32 Diagnosis: Dx: Cervical radiculopathy with cervical spondylosis and post cervical laminectomy syndrome Lumbar to colopathy with lumbar degenerative disc disease Myofascial pain Right shoulder joint pain Migraine headaches History or Present Illness: HPI: Telemedicine visit today with patient ID verified with full name as well as full date of , total time spent 11 minutes 50-year-old patient via telemedicine visit today requesting refill of medication Duragesic patch and hydromorphone. Patient reports she continues to do well with this medication regimen has had no significant side effects except for occasional constipation which she is increasing hydration and using [id number] laxatives which are working well for her. Patient reports still significant pain in the neck and shoulders upper back mid back as well as the low back and bilateral lower extremities but manageable with the medication and about a 70% appointment overall. Patient has been on very stable regimen has had appropriate K tracks report as well as appropriate urinalyses to date. We discussed options with the patient and we will refill patient's medication for 30-day supply. Patient was given instructions well side effects beware of with each of the medications and will follow up in approximate 30 days as scheduled. Physical Exam: PE: ABELINO LIMA MD Jul 10, 2021 15:34
--- NOTE | 2021-07-10 15:36 | FMN ---
PT PROBLEMS Addendum for patient visits via telemedicine July 10, 2021 Correction hydromorphone was discontinued and oxycodone was prescribed 10 mg 1 p.o. every 6 hours as needed pain. ABELINO LIMA MD Jul 10, 2021 15:36
== END | disposition home or self-care (01) ==
LOC: PNCL 14:00
PROVIDERS: ATTEND Anesthesiology
DX: M47.22 Other spondylosis with radiculopathy, cervical region (principal); M96.1 Postlaminectomy syndrome, not elsewhere classified; M51.16 Intervertebral disc disorders with radiculopathy, lumbar region; M79.18 Myalgia, other site; M25.511 Pain in right shoulder; G43.909 Migraine, unspecified, not intractable, without status migrainosus; E11.9 Type 2 diabetes mellitus without complications; F41.9 Anxiety disorder, unspecified; F32.9 Major depressive disorder, single episode, unspecified; F17.210 Nicotine dependence, cigarettes, uncomplicated; Z79.899 Other long term (current) drug therapy; Z98.890 Other specified postprocedural states; Z88.6 Allergy status to analgesic agent
CPT/HCPCS: 99212; G0463

== ENCOUNTER → 2021-07-24 | Outpatient (CLI) | payer MEDICARE ==
[2015-01-17 18:17] VITALS: BP 144/72
--- NOTE | 2021-07-24 11:26 | PDOC ---
Progress Note - Pain Clinic Date of Service: DOS: DATE: 07/24/21 TIME: 11:21 Diagnosis: Dx: Lumbar radiculopathy with lumbar degenerative disc disease Cervical radiculopathy with cervical spondylosis and cervical postlaminectomy syndrome Myofascial pain Shoulder joint pain on the right with osteoarthritis Migraine headaches. History or Present Illness: HPI: 50-year-old female returns for follow-up status post medication management with both Duragesic patch as well as oxycodone. Patient reports he is doing very well with both of these and very stable regimen her main complaint that was low back and lower extremity pain with pain radiating into the right greater than left lower extremity posterior gluteus posterior thigh posterior calf some on the left side but much more severe on the right with walking standing change positions patient also has some pain the base the neck and shoulders but is much more manageable with the pain medication than previously patient reports about 75% improvement with the medications without any significant side effects of some occasional constipation she has tried multiple medications for the constipation and finds the hydration works the best. Patient is following up with her repairer engine production in about 1 week as well regarding this. Patient re ports her pain is a 9 on a scale of 10 at its worst over the past week 6 on average 3 to [place] is a 6 today. Patient reports aching and dull in the low back radiating the right lower extremity as described. Worse with walking standing changing positions better with sitting or laying down. Patient reports it does awaken her from sleep about once every 5 hours suggested she is laying on her right side. Patient has been doing physical therapy exercises on her own as well as stretching strengthening exercises and applying heat and massage techniques to the low back and hip on the right but without significant reduction in pain. Patient reports he is walking daily despite the pain and try to stay active as best she can to keep the muscles loose and strong. Patient is taking [id number] Tylenol addition to her pain medication as well as ibuprofen on occasion which is not decreasing the pain significantly. Physical Exam: VS: Blood pressure is 103/55 pulse 79 respirations 18 temperature is 99.1 F height is 5 foot 4 inches weight is 159 pounds. PE: PHYSICAL EXAMINATION: GENERAL: The patient is awake, alert, oriented, appropriate, very pleasant in demeanor HEENT: Shows normocephalic, atraumatic. Extraocular movements are intact and symmetrical. Oral cavity: Mucous membranes moist and pink. Dentition is intact. NECK: Shows anterior throat supple without palpable lymphadenopathy noted. Swallow reflex symmetrical. CHEST: Shows normal on inspection. Breath sounds are clear bilaterally. HEART: Shows S1, S2 clear. No murmurs auscultated. ABDOMEN: Soft, nontender, nondistended. No palpable organomegaly is noted. BACK: Shows spine grossly in the midline. Normal-appearing cervical lordotic curvature. There is slightly increased thoracic kyphosis, some flattening of the lumbar lordotic curvature. Lumbar paraspinous muscles show symmetrical on inspection, on palpation shows some moderate tenderness diffusely throughout the upper, middle and lower distribution of the paraspinous muscles without specific trigger points, without radiation of pain. The patient has good rotational motion of the lumbar spine, both laterally as well as extension and flexion without significant difficulty. No tenderness over the spinous processes, sacrum or sacroiliac regions. EXTREMITIES: Lower extremities show deep tendon reflexes 2+ in the patellar and tendo calcaneus tendons. Motor exam is 4 on a scale of 5 with right dorsiflexion, extension, quadriceps and hamstring flexion and 5/5 on the left. Peripheral pulses are 1+ posterior tibial. No peripheral edema is noted bilaterally. Lower extremities are warm and dry to touch, equal in color and appearance. Straight leg raise noted to be positive on the right about 45 degr ees, left side is negative. SKIN: Shows warm and dry, good turgor. No edema. No sores, rashes or bruising throughout. Procedure: Procedure: Options were discussed with patient. Patient's old chart was viewed as her curr ent medication regimen updated current review of systems updated today as well. We will preauthorize patient for lumbar epidural steroid injection at the L5-S1 level as he has a clinical L5-S1 radiculopathy worse on the right than the left. Also, we will refill patient's medication electronically prescribed for oxycodone 10 mg as patient has a new insurance requirement for 1week prescription prior to 1 month prescription with her new insurance. Patient to contact the office prior to refill for Duragesic patch as well as a 1 month prescription for the oxycodone which will be due first week of August. Patient given instructions well side effects beware with the medication. Patient continue with stretching strength exercise as well as daily walking and heat and massage therapies as well as oral analgesics as currently. Once approved patient return for translaminar approach L5 5 S1 lumbar epidural steroid injection with fluoroscopic guidance. Medication Injected: Med Injected: None Condition at Discharge: Condition at Discharge: Condition at discharge is stable. ABELINO LIMA MD Jul 24, 2021 11:26
== END | disposition home or self-care (01) ==
LOC: PNCL 10:08
PROVIDERS: ATTEND Anesthesiology
DX: M51.16 Intervertebral disc disorders with radiculopathy, lumbar region (principal); M47.22 Other spondylosis with radiculopathy, cervical region; M96.1 Postlaminectomy syndrome, not elsewhere classified; M79.18 Myalgia, other site; M19.011 Primary osteoarthritis, right shoulder; G43.909 Migraine, unspecified, not intractable, without status migrainosus; E11.9 Type 2 diabetes mellitus without complications; F41.9 Anxiety disorder, unspecified; F32.9 Major depressive disorder, single episode, unspecified; F17.210 Nicotine dependence, cigarettes, uncomplicated; Z98.51 Tubal ligation status; Z98.890 Other specified postprocedural states; Z79.899 Other long term (current) drug therapy; Z88.6 Allergy status to analgesic agent; Z72.89 Other problems related to lifestyle
CPT/HCPCS: 99212; G0463

== ENCOUNTER → 2021-08-07 | Outpatient (CLI) | payer MEDICARE ==
[2015-01-17 18:17] VITALS: BP 144/72
--- NOTE | 2021-08-07 10:48 | PDOC ---
Progress Note - Pain Clinic Date of Service: DOS: DATE: 08/07/21 TIME: 10:44 Diagnosis: Dx: Lumbar radiculopathy with lumbar degenerative disc disease Cervical radiculopathy with cervical spondylosis and postlaminectomy syndrome Myofascial pain Right shoulder joint pain with osteoarthritis Migraine headaches History or Present Illness: HPI: Telemedicine visit today with full identity verified with full name as well as date of , total time spent 12 minutes, voice telephone only. 50-year-old female via telemedicine visit today requesting refill of Duragesic patch as well as oxycodone. Patient reports that she is doing very well with this and has been on very stable regimen with the medication as well without any specific side effects. Patient reports he still having up significant pain the base the neck and the right shoulder as well as the mid back and low back but very manageable with medications with approximate 75% or more level decreased pain with rotation. Patient reports some days are worse than others but states she is able to function very well and very manageable with the medications. Patient reports no dysphoria euphoria itching nausea vomiting and no disturbances with sleep currently. Patient has had appropriate K tracks reporting as well as appropriate urinalyses to date as well. We will refill patient's oxycodone as well as Duragesic patches via electronic prescribing. Patient follow-up in approximate 30 days as scheduled. Physical Exam: PE: ABELINO LIMA MD Aug 07, 2021 10:47
== END | disposition home or self-care (01) ==
LOC: PNCL 10:33
PROVIDERS: ATTEND Anesthesiology
DX: M51.16 Intervertebral disc disorders with radiculopathy, lumbar region (principal); M47.22 Other spondylosis with radiculopathy, cervical region; M96.1 Postlaminectomy syndrome, not elsewhere classified; M79.18 Myalgia, other site; M19.011 Primary osteoarthritis, right shoulder; G43.909 Migraine, unspecified, not intractable, without status migrainosus; E11.9 Type 2 diabetes mellitus without complications; F41.9 Anxiety disorder, unspecified; F32.9 Major depressive disorder, single episode, unspecified; F17.210 Nicotine dependence, cigarettes, uncomplicated; Z98.51 Tubal ligation status; Z98.890 Other specified postprocedural states; Z79.899 Other long term (current) drug therapy; Z88.6 Allergy status to analgesic agent
CPT/HCPCS: 99212; G0463

== ENCOUNTER → 2021-08-23 | Outpatient (CLI) | payer MEDICARE ==
[2015-01-17 18:17] VITALS: BP 144/72
--- NOTE | 2021-08-23 16:17 | PDOC ---
Progress Note - Pain Clinic Date of Service: DOS: DATE: 08/23/21 TIME: 16:14 Diagnosis: Dx: Lumbar radiculopathy with lumbar degenerative disc disease Cervical radiculopathy with cervical spondylosis Myofascial pain Right shoulder joint pain with osteoarthritis Migraine headache History or Present Illness: HPI: Telemedicine visit today with patient's identity verified with full name as well as full date of , total time spent 12 minutes, telephone voice only. 50-year-old female via telemedicine visit with request for refill of oxycodone and Duragesic patches. Patient reports he is doing very well with each of these without any significant side effects and reports reduction of about 60 to 70% pain with the medications. Patient reports she has been less active lately and has has helped control her pain although encouraged her to maintain stretching strength and exercise as well as activity as tolerated to maintain physical condition. Patient voices understanding. Patient has had appropriate K tracks reporting as well as appropriate urinalyses to date with each of her medications will be refilled these for a 1 month prescription. Patient was given instructions well side effects beware of each of the medications will follow up in approximate 30 days as scheduled. ABELINO LIMA MD Aug 23, 2021 16:17
== END | disposition home or self-care (01) ==
LOC: PNCL 13:00
PROVIDERS: ATTEND Anesthesiology
DX: M51.16 Intervertebral disc disorders with radiculopathy, lumbar region (principal); M47.22 Other spondylosis with radiculopathy, cervical region; M79.18 Myalgia, other site; M19.011 Primary osteoarthritis, right shoulder; G43.909 Migraine, unspecified, not intractable, without status migrainosus; E11.9 Type 2 diabetes mellitus without complications; F41.9 Anxiety disorder, unspecified; F32.9 Major depressive disorder, single episode, unspecified; F17.210 Nicotine dependence, cigarettes, uncomplicated; Z98.51 Tubal ligation status; Z98.890 Other specified postprocedural states; Z79.899 Other long term (current) drug therapy; Z72.89 Other problems related to lifestyle; Z88.6 Allergy status to analgesic agent
CPT/HCPCS: 99212; G0463

== ENCOUNTER → 2021-09-11 | Outpatient (CLI) | payer MEDICARE ==
[2015-01-17 18:17] VITALS: BP 144/72
[~2021-09-11] MED LIST changes: -VENL150C PO; +VENL150C3 PO
--- NOTE | 2021-09-11 12:59 | PDOC ---
Progress Note - Pain Clinic Date of Service: DOS: DATE: 09/11/21 TIME: 12:57 Diagnosis: Dx: Lumbar radiculopathy with lumbar degenerative disc disease Cervical radiculopathy with cervical spondylosis Myofascial pain Shoulder joint pain right with osteoarthritis Migraine headaches History or Present Illness: HPI: Telemedicine visit today with patient's identity verified with full name as well as full date of , total time spent 11 minutes, telephone voice only. 50-year-old female via telemedicine visit today requesting refill for Duragesic patch patient reports he is doing very well with these we had gotten her off schedule with the 2-week refill secondary to a reinsurance requirement for a 10- day supply earlier on and she is off schedule now with the oxycodone that she takes for chronic pain by 2 weeks. We discussed this in detail we will refill the medication for 2 weeks. And then get her back on track later this month prior to the . Patient reports doing very well with the patches as well as the oxycodone without any side effects still significant pain in the back and into the right shoulder but tolerable with the medications currently. Patient is had appropriate K tracks report as well as appropriate urinalyses to date as well. We will refill patient's medication only the Duragesic patch for 2 weeks. As described. Patient was given instructions well side effects aware of the medications will follow up in approximately 2 weeks as scheduled. Physical Exam: PE: ABELINO LMIA MD Sep 11, 2021 12:59
--- NOTE | 2021-09-11 14:10 | NUR ---
Pt called clinic requesting a refill from Dr. Polanco on her Fentanyl Patch 75 mg for her chronic pain issues. Pt. states pain level is worse the last week /-10. Denies any new health issues or change in medications. Pharmacy verified as well as next clinic visit. [employer] checked. Pt denies any side effects from pain medications. Dr. Polanco spoke with pt. per phone prior to Escribing. Sergey Campo RN
== END | disposition home or self-care (01) ==
LOC: PNCL 10:48
PROVIDERS: ATTEND Anesthesiology
DX: M51.16 Intervertebral disc disorders with radiculopathy, lumbar region (principal); M47.22 Other spondylosis with radiculopathy, cervical region; M79.18 Myalgia, other site; M19.011 Primary osteoarthritis, right shoulder; G43.909 Migraine, unspecified, not intractable, without status migrainosus; F17.210 Nicotine dependence, cigarettes, uncomplicated; F41.9 Anxiety disorder, unspecified; F32.9 Major depressive disorder, single episode, unspecified; Z98.51 Tubal ligation status; Z98.890 Other specified postprocedural states; Z88.6 Allergy status to analgesic agent; Z72.89 Other problems related to lifestyle
CPT/HCPCS: 99212; G0463

== ENCOUNTER → 2021-09-21 | Outpatient (CLI) | payer MEDICARE ==
[2015-01-17 18:17] VITALS: BP 144/72
--- NOTE | 2021-09-21 09:43 | PDOC ---
Progress Note - Pain Clinic Date of Service: DOS: DATE: 09/21/21 TIME: 09:42 Diagnosis: Dx: Lumbar radiculopathy with lumbar degenerative disc disease Cervical radiculopathy with cervical spondylosis and cervical postlaminectomy syndrome Myofascial pain Shoulder joint pain with osteoarthritis, right Migraine headaches History or Present Illness: HPI: Telemedicine visit today with patient's identity verified with full name as well as full date of , total time spent 12 minutes, telephone voice only 50-year-old female via telemedicine visit today requesting refill of oxycodone, we had refilled her fentanyl patches about 2 weeks ago and the pharmacy filled a full months worth instead of 2 weeks as he requested patient has had a 2-week offset refill schedule at this time. We will correct this in the future but patient is requesting refill of her oxycodone today patient has been very stable on both of her medications has had no significant side effects and reports the pain is controlled fairly well about 70% for most of the time. Patient reports still some significant pain base the neck and shoulders upper back mid back as well as in the low back and hips very manageable with the current medication regimen. Patient has had appropriate K tracks reporting as well as appropriate urinalyses to date as well. We discussed options and will refill patient's oxycodone via electronic prescription patient was given instructions as well as side effects beware with the medication. Patient will follow up in approximately 30 days as scheduled. ABELINO LIMA MD Sep 21, 2021 09:43
--- NOTE | 2021-09-21 10:00 | NUR ---
TELEHEALTH VISIT: Pt called to have hydrocodone refilled. Pt confirmed , follow up appointment, and preferred pharmacy, [facility]. Pt denies constipation, any new issues or allergies. Current pain level 7/10, per pt is stable. Pt transferred to Dr. Polanco for further evaluation.
== END | disposition home or self-care (01) ==
LOC: PNCL 08:25
PROVIDERS: ATTEND Anesthesiology
DX: M51.16 Intervertebral disc disorders with radiculopathy, lumbar region (principal); M50.10 Cervical disc disorder with radiculopathy, unspecified cervical region; M96.1 Postlaminectomy syndrome, not elsewhere classified; M79.18 Myalgia, other site; M19.011 Primary osteoarthritis, right shoulder; G43.909 Migraine, unspecified, not intractable, without status migrainosus; E11.9 Type 2 diabetes mellitus without complications; F41.9 Anxiety disorder, unspecified; F32.9 Major depressive disorder, single episode, unspecified; Z98.51 Tubal ligation status; Z98.890 Other specified postprocedural states; Z79.899 Other long term (current) drug therapy
CPT/HCPCS: 99212; G0463

== ENCOUNTER → 2021-10-06 | Outpatient (CLI) | payer MEDICARE ==
[2015-01-17 18:17] VITALS: BP 144/72
--- NOTE | 2021-10-06 09:59 | PDOC ---
Progress Note - Pain Clinic Date of Service: DOS: DATE: 10/06/21 TIME: 09:55 Diagnosis: Dx: Lumbar radiculopathy lumbar degenerative disc disease Cervical radiculopathy cervical spondylosis and cervical postlaminectomy syndrome Myofascial pain Shoulder joint pain right, with osteoarthritis Migraine headache History or Present Illness: HPI: 50-year-old female returns for follow-up status post medication management with oxycodone 10 mg and a Duragesic patch 75 mcg. Patient reports he is doing very well with the medications and is on a very stable regimen without any side effects with the medications patient reports it does decrease the pain significa ntly by about 70 to 75% for the most part. Patient reports lately has been having some increased abdominal pain and has a full GI work-up pending next week with upper and lower endoscopy. Patient reports the pain also present in the base the neck and shoulders upper back mid back low back and bilateral lower extremities in a radicular fashion more in the right upper extremity as well as the bilateral lower extremities patient reports her pain overall is a 10 on scale 10 is worse over the past week 8 on average 6 at its least and is a 6 today. Patient reports aching sharp shooting tingling burning radiating constant in the right arm as well as bilateral lower extremities. Patient reports disturbs her sleep frequently she usually take pain medication get up and change positions to get back to sleep. Patient reports no loss of motor function no bowel bladder incontinence. She does report frequent emesis after eating with significant abdominal pain as well. Physical Exam: VS: Blood pressure is one 9/69 pulse 76 respirations 16 temperature 99.1 F weight is 162 pounds. PE: PHYSICAL EXAMINATION: GENERAL: The patient is awake, alert, oriented, appropriate, very pleasant in demeanor HEENT: Shows normocephalic, atraumatic. Extraocular movements are intact and symmetrical. Oral cavity: Mucous membranes moist and pink. Dentition is intact. NECK: Shows anterior throat supple without palpable lymphadenopathy noted. Swallow reflex symmetrical. CHEST: Shows normal on inspection. Breath sounds are clear bilaterally, distant but no rales or rhonchi auscultated. HEART: Shows S1, S2 clear. No murmurs auscultated. ABDOMEN: Soft, diffusely tender throughout all 4 quadrants, nondistended. No palpable organomegaly is noted. BACK: Shows spine grossly in the midline. Normal-appearing cervical lordotic curvature. Cervical paraspinous muscles show symmetrical with inspection, on palpation some moderate tenderness diffusely, without trigger points or asymmetry. Patient shows full rotation motion cervical spine both laterally as well as extension flexion without significant difficulty. There is slightly increased thoracic kyphosis, some minor flattening of the lumbar lordotic curvature. Lumbar paraspinous muscles show symmetrical on inspection, on palpation shows some moderate tenderness diffusely throughout the upper, middle and lower distribution of the paraspinous muscles without specific trigger points, without radiation of pain. The patient has good rotational motion of the lumbar spine, both laterally as well as extension and flexion without significant difficulty. No tenderness over the spinous processes, sacrum or sacroiliac regions. EXTREMITIES: Lower extremities show deep tendon reflexes 2+ in the patellar and tendo calcaneus tendons. Motor exam is 4 on a scale of 5 with right dorsiflexion, extension, quadriceps and hamstring flexion and 5/5 on the left. Peripheral pulses are 1+ posterior tibial. No peripheral edema is noted bilaterally. Lower extremities are warm and dry to touch, equal in color and appearance. Upper extremities show deep tendon reflexes 2+ in the bicep tricep tendons, motor exam is 4-5 on the right and 5 out of 5 on the left allocation analyst strength bicep and tricep flexion. Shoulder shrug strong and intact without loss of strength on resistance bilaterally. SKIN: Shows warm and dry, good turgor. No edema. No sores, rashes or bruising throughout. Procedure: Procedure: Options were discussed with the patient. Patient's old chart was use her current medication regimen updated current review of systems updated today as well. We will refill patient's Duragesic patch as well as oxycodone, patient was given instructions well side effects aware of each of the medications. Patient has had appropriate K tracks reporting as well as appropriate urinalyses to date as well. We will make this a 30-day prescription and patient will follow up in approximate 30 days as scheduled. Medication Injected: Med Injected: None Condition at Discharge: Condition at Discharge: Condition at discharge is stable. ABELINO LIMA MD October 06, 2021 09:58
== END | disposition home or self-care (01) ==
LOC: PNCL 08:57
PROVIDERS: ATTEND Anesthesiology
DX: M51.16 Intervertebral disc disorders with radiculopathy, lumbar region (principal); M47.22 Other spondylosis with radiculopathy, cervical region; M96.1 Postlaminectomy syndrome, not elsewhere classified; M79.18 Myalgia, other site; M19.011 Primary osteoarthritis, right shoulder; G43.909 Migraine, unspecified, not intractable, without status migrainosus; E11.9 Type 2 diabetes mellitus without complications; F41.9 Anxiety disorder, unspecified; F32.9 Major depressive disorder, single episode, unspecified; F17.210 Nicotine dependence, cigarettes, uncomplicated; Z98.51 Tubal ligation status; Z98.890 Other specified postprocedural states; Z79.899 Other long term (current) drug therapy; Z88.6 Allergy status to analgesic agent
CPT/HCPCS: 99212; G0463